=== PATIENT | female | born 1995 | race Caucasian/White ===

== ENCOUNTER 2017-02-21 19:25 | Emergency (ER) | payer OTHER, SELFPAY | END 2017-02-21 21:00 | disposition home or self-care (01) | PROVIDERS: Emergency Provider Nurse Practitioner; Visit Provider Nurse Practitioner | DX: J32.0 Chronic maxillary sinusitis (principal); J01.90 Acute sinusitis, unspecified; Z34.02 Encounter for supervision of normal first pregnancy, second trimester; Z88.0 Allergy status to penicillin | CPT/HCPCS: 99201 ==

== ENCOUNTER 2018-07-24 12:46 | Emergency (ER) | payer BC, SELFPAY ==
[2018-07-24 13:00] VITALS: BP 125/72; PULSE 82; RESP 18; TEMP 36.6; O2SAT 98; BMI 42.0
[2018-07-24 13:20] LABS: UTC Pregnancy Test, Urine Negative (Negative)
--- NOTE | 2018-07-24 13:20 | HMH.EDUTC ---
[facility] [place] Disposition Clinical Impression: Low back pain Qualifiers: Chronicity: unspecified Back pain laterality: midline Sciatica presence: with sciatica Sciatica laterality: sciatica of right side Qualified Code(s): M54.41 - Lumbago with sciatica, right side Disposition: Home, Self-Care Condition on Discharge: Good Instructions: Sciatica (Alternative Therapy), Sciatica, Low Back Pain, DI for Low Back Pain, DI for Sciatica, DI for Chronic Pain -- Adult, DI for Back Pain With Sciatica Additional Instructions: *Etodolac laurie 6 hours with meal as needed for pain/inflammation *Remember you had a Toradol shot in the clinic today, which is similar to Etodolac *Not additional anti-inflammatory like motrin, aleve, advil with the above amount of Etodolac. You can still take Tylenol every 4 hours as needed if you need something else for pain *moist heat every 20 minutes 3-4 times a day to affected area *Muscle relaxer every 8 hours as needed for muscle spasms but remember, it WILL cause drowsiness You cannot take it and drive, operate machinery or care for small children. *Keep this area active, no movement leads to more stiffness, However take it easy and avoid heavy lifting pushing or pulling *Follow up with you family doctor if no improvement for further treatment \Straight to ER if any loss of control of bowel or bladder or life threatening symptoms Warm bath soaks may help with low back pain Prescriptions: Etodolac [Etodolac 200mg Cap] 200 mg PO Q6HP PRN #15 cap PRN Reason: Moderate Pain Cyclobenzaprine HCl [Flexeril 10mg tablet] 10 mg PO TID PRN #15 tab PRN Reason: Muscle Spasm Referrals: Provider,Referral, [Primary Care Provider] - As needed Time of Disposition: 13:41 Medical Decision Making - Jone Inquiry Pt receiving controlled substance: No Jone was queried for this patient: No Vital Signs: 07/24/18 13:00 Temperature 97.8 F Temperature Source Oral Pulse Rate [Right Brachial] 82 Respiratory Rate 18 Blood Pressure [Right Arm] 125/72 Blood Pressure Mean [Right Arm] 89 Blood Pressure Source [Right Arm] Automatic Cuff Blood Pressure Position [Right Arm] Sitting 02 Sat by Pulse Oximetry 98 Oxygen Delivery Method Room Air - Lab Data Lab results reviewed: Yes: I reviewed the patient's lab results. Lab Results 07/24/18 13:16: Tst Clinic Negative Orders (Tests/Meds): ED MEDICATIONS Discontinued Medications Generic Name Dose Route Start Last Admin Trade Name Monalisa PRN Reason Stop Dose Admin Ketorolac Tromethamine 60 mg 07/24/18 13:22 07/24/18 13:27 Toradol 60mg/2ml Vial IM 07/24/18 13:23 60 mg ONCE ONE Administration Methylprednisolone Sodium Succinate 125 mg 07/24/18 13:22 07/24/18 13:27 Solu-Medrol 125mg/2ml Vial IM 07/24/18 13:23 125 mg ONCE ONE Administration [facility] [place] HPI - General Stated complaint: lower back pain Time Seen by Provider: 07/24/18 13:20 Mode of Arrival: Family Vehicle Source of Information: Patient Limitations: No Limitations Description of Symptoms (Recalled from Triage Doc. by RN): C/O MID LOW BACK PAIN SHARP IN NATURE WITH MOVEMENT SINCE LAST PM. UNKNOWN INJURY HEENT Symptoms (Recalled from RN notes): No Resp Symptoms (Recalled from RN notes): No Skin Symptoms (Recalled from RN notes): No MS Symptoms (Recalled from RN notes): Yes Functional Status (Recalled from RN notes): N/A - History of Present Illness Provider Complaint: Patient state that she has been walking more than usual State that she noticed yesterday that she was having some pain in the right side of her lower back area that was going into her right buttock area State that pain was sharp at times Denies known injury denies bowel or bladder problems or loss of control - Related Data Previous Rx's Medication Instructions Recorded Cyclobenzaprine HCl [Flexeril 10mg 10 mg PO TID PRN #15 tab 07/24/18 tablet] Etodolac [Etodolac 200mg Cap] 200 mg PO Q6HP PRN #15 cap
--- NOTE | 2018-07-24 13:24 | ED_ITS ---
[facility] [place] Impression: Low back pain Qualifiers: Chronicity: unspecified Back pain laterality: midline Sciatica presence: with sciatica Sciatica laterality: sciatica of right side Qualified Code(s): M54.41 - Lumbago with sciatica, right side Disposition: Home, Self-Care Condition on Discharge: Good Instructions: Sciatica (Alternative Therapy), Sciatica, Low Back Pain, DI for Low Back Pain, DI for Sciatica, DI for Chronic Pain -- Adult, DI for Back Pain With Sciatica Additional Instructions: *Etodolac laurie 6 hours with meal as needed for pain/inflammation *Remember you had a Toradol shot in the clinic today, which is similar to Etodolac *Not additional anti-inflammatory like motrin, aleve, advil with the above amount of Etodolac. You can still take Tylenol every 4 hours as needed if you need something else for pain *moist heat every 20 minutes 3-4 times a day to affected area *Muscle relaxer every 8 hours as needed for muscle spasms but remember, it WILL cause drowsiness You cannot take it and drive, operate machinery or care for small children. *Keep this area active, no movement leads to more stiffness, However take it easy and avoid heavy lifting pushing or pulling *Follow up with you family doctor if no improvement for further treatment \Straight to ER if any loss of control of bowel or bladder or life threatening symptoms Warm bath soaks may help with low back pain Prescriptions: Etodolac [Etodolac 200mg Cap] 200 mg PO Q6HP PRN #15 cap PRN Reason: Moderate Pain Cyclobenzaprine HCl [Flexeril 10mg tablet] 10 mg PO TID PRN #15 tab PRN Reason: Muscle Spasm Referrals: Provider,Referral, [Primary Care Provider] - As needed Time of Disposition: 13:41 Medical Decision Making - Jone Inquiry Pt receiving controlled substance: No Jone was queried for this patient: No Vital Signs: 07/24/18 13:00 Temperature 97.8 F Temperature Source Oral Pulse Rate [Right Brachial] 82 Respiratory Rate 18 Blood Pressure [Right Arm] 125/72 Blood Pressure Mean [Right Arm] 89 Blood Pressure Source [Right Arm] Automatic Cuff Blood Pressure Position [Right Arm] Sitting 02 Sat by Pulse Oximetry 98 Oxygen Delivery Method Room Air - Lab Data Lab results reviewed: Yes: I reviewed the patient's lab results. Lab Results 07/24/18 13:16: Tst Clinic Negative Orders (Tests/Meds): ED MEDICATIONS Discontinued Medications Generic Name Dose Route Start Last Admin Trade Name Monalisa PRN Reason Stop Dose Admin Ketorolac Tromethamine 60 mg 07/24/18 13:22 07/24/18 13:27 Toradol 60mg/2ml Vial IM 07/24/18 13:23 60 mg ONCE ONE Administration Methylprednisolone Sodium Succinate 125 mg 07/24/18 13:22 07/24/18 13:27 Solu-Medrol 125mg/2ml Vial IM 07/24/18 13:23 125 mg ONCE ONE Administration [facility] [place] General Stated complaint: lower back pain Time Seen by Provider: 07/24/18 13:20 Mode of Arrival: Family Vehicle Source of Information: Patient Limitations: No Limitations Description of Symptoms (Recalled from Triage Doc. by RN): C/O MID LOW BACK PAIN SHARP IN NATURE WITH MOVEMENT SINCE LAST PM. UNKNOWN INJURY HEENT Symptoms (Recalled from RN notes): No Resp Symptoms (Recalled from RN notes): No Skin Symptoms (Recalled from RN notes): N
[2018-07-24 13:43] VITALS: BP 125/72; PULSE 82; RESP 18; TEMP 36.6; O2SAT 98
== END 2018-07-24 13:45 | disposition home or self-care (01) ==
PROVIDERS: Emergency Provider Nurse Practitioner
DX: M54.41 Lumbago with sciatica, right side (principal); Z88.0 Allergy status to penicillin
CPT/HCPCS: 81025; 96372; 99202

== ENCOUNTER → 2018-09-14 16:28 | Outpatient (CLI) | payer BC, SELFPAY ==
[2018-09-14 17:04] LABS: Basophils % 0.7 % (0.1-2.0); Eosinophils # 0.1 K/mm3 (0.0-0.4); Eosinophils % 1.6 % (0.1-12.0); Hematocrit 33.5 % (37.0-47.0); Hemoglobin 10.6 g/dL (12.2-16.2); Lymphocytes # 1.9 K/mm3 (0.7-4.5); Lymphocytes % 32.4 % (10-50); Mean Corpuscular HGB Conc 31.6 g/dL (31.8-35.4); Mean Corpuscular Hemoglobin 21.9 pg (27.0-31.2); Mean Corpuscular Volume 69.4 fl (81-99); Mean Platelet Volume 7.1 fl (7.4-10.4); Monocytes # 0.2 K/mm3 (0.1-1.0); Monocytes % 3.8 % (1.7-9.3); Neutrophils # 3.7 K/mm3 (1.8-7.8); Neutrophils % 61.5 % (37.0-80.0); Platelet Count 293 K/mm3 (142-424); Red Blood Count 4.82 M/mm3 (4.20-5.40); Red Cell Distribution Width 15.9 % (11.5-17.5)
[2018-09-14 17:50] LABS: Alanine Aminotransferase 23 U/L (12-78); Albumin Level 3.6 gm/dL (3.4-5.0); Albumin/Globulin Ratio 1.3 (1.1-1.8); Alkaline Phosphatase 98 U/L (46-116); Anion Gap 11.3 mEq/L (5-15); Aspartate Amino Transferase 10 U/L (15-37); Bilirubin,Total 0.2 mg/dL (0.2-1.0); Blood Urea Nitrogen 15 mg/dL (7-18); Calcium 8.6 mg/dL (8.5-10.1); Carbon Dioxide 27 mmol/L (21.0-32.0); Chloride 105 mmol/L (98-107); Creatinine,Serum 0.64 mg/dL (0.55-1.02); Estimated Glomerular Filt Rate 115 ml/min (>60); Free T4 (Free Thyroxine) 1.02 ng/dl (0.76-1.46); GFR (African American) 139 ML/MIN (>60); Globulin 2.7 gm/dl (1.3-3.2); Glucose 97 mg/dL (74-106); Potassium 4.3 mmoL/L (3.5-5.1); Sodium 139 mmol/L (136-145); Thyroid Stimulating Hormone 1.27 uIU/ml (0.358-3.740); Total Protein,Serum 6.3 gm/dL (6.4-8.2)
[2018-09-16 17:50] LABS: Vitamin B12 430 pg/mL (232-1245)
== END ==
PROVIDERS: Visit Provider Nurse Practitioner Family
DX: R53.81 Other malaise (principal); F41.8 Other specified anxiety disorders
CPT/HCPCS: 36415; 80053; 82607; 84439; 84443; 85025

== ENCOUNTER → 2018-11-10 10:59 | Outpatient (CLI) | payer BC, SELFPAY ==
[2018-11-10 11:20] LABS: Basophils % 0.3 % (0.1-2.0); Eosinophils # 0.1 K/mm3 (0.0-0.4); Eosinophils % 1.2 % (0.1-12.0); Hematocrit 33.5 % (37.0-47.0); Hemoglobin 10.7 g/dL (12.2-16.2); Lymphocytes # 1.7 K/mm3 (0.7-4.5); Lymphocytes % 20.5 % (10-50); Mean Corpuscular HGB Conc 31.9 g/dL (31.8-35.4); Mean Corpuscular Hemoglobin 23.3 pg (27.0-31.2); Mean Corpuscular Volume 73.1 fl (81-99); Monocytes # 0.4 K/mm3 (0.1-1.0); Monocytes % 5.3 % (1.7-9.3); Neutrophils # 5.9 K/mm3 (1.8-7.8); Neutrophils % 72.7 % (37.0-80.0); Platelet Count 245 K/mm3 (142-424); Red Blood Count 4.59 M/mm3 (4.20-5.40); Red Cell Distribution Width 16.5 % (11.5-17.5); White Blood Count 8.1 K/mm3 (4.8-10.8)
[2018-11-10 11:45] LABS: HCG Qualitative, Serum Negative (Negative)
[2018-11-10 11:59] LABS: Alanine Aminotransferase 21 U/L (12-78); Albumin Level 3.7 gm/dL (3.4-5.0); Albumin/Globulin Ratio 1.3 (1.1-1.8); Alkaline Phosphatase 86 U/L (46-116); Anion Gap 14.8 mEq/L (5-15); Aspartate Amino Transferase 13 U/L (15-37); Bilirubin,Total 0.2 mg/dL (0.2-1.0); Blood Urea Nitrogen 12 mg/dL (7-18); Calcium 8.7 mg/dL (8.5-10.1); Carbon Dioxide 27 mmol/L (21.0-32.0); Chloride 103 mmol/L (98-107); Creatinine,Serum 0.93 mg/dL (0.55-1.02); Estimated Glomerular Filt Rate 75 ml/min (>60); GFR (African American) 90 ML/MIN (>60); Globulin 2.8 gm/dl (1.3-3.2); Glucose 95 mg/dL (74-106); Potassium 3.8 mmoL/L (3.5-5.1); Sodium 141 mmol/L (136-145); Total Protein,Serum 6.5 gm/dL (6.4-8.2)
[2018-11-12 14:49] LABS: Ferritin 14 ng/mL (8-388); Iron 28 ug/dl (28-170)
[2018-11-13 10:10] LABS: Folate >20.0 ng/mL (>3.0)
== END ==
PROVIDERS: Visit Provider Nurse Practitioner Family
DX: R10.30 Lower abdominal pain, unspecified (principal); R11.0 Nausea; D64.9 Anemia, unspecified
CPT/HCPCS: 36415; 80053; 82728; 82746; 83540; 84703; 85025

== ENCOUNTER → 2019-03-06 15:15 | Outpatient (CLI) | payer BC, SELFPAY ==
--- NOTE | 2019-03-06 15:21 | US_ITS ---
PROCEDURE: US OB TRANSVAGINAL CLINICAL INDICATION: US OB T/V- Viability and Dates Follow-up subchorionic bleed COMPARISON: US OB <= 14 WEEKS FETUS from 02/24/2019 FINDINGS: An intrauterine gestational sac is present with a pole with a crown-rump length of 1.61cm correlating to gestational age of 8weeks 1day. heart tones are present with an FHR of 170bpm. Yolk sac is noted. There remains an area of decreased echogenicity in the subchorionic region consistent with a residual subchorionic hemorrhage measuring 2.3 x 0.6 cm previously 2 point by 0.7 cm. No adnexal mass or cul-de-sac fluid. IMPRESSION: Live IUP at 8 weeks 1 day. Persistent hypo echogenicity along the anterior aspect the uterus consistent with small subchorionic hemorrhage overall not significantly changed Estimated due date by Ultrasound is 10/15/2019 Dictated by: Que Rajan MD 03/06/2019 16:15 Electronically signed by Que Rajan MD in [place] 03/06/2019 16:15
== END ==
PROVIDERS: PCP Nurse Practitioner Family; Visit Provider Obstetrics & Gynecology
DX: O26.841 Uterine size-date discrepancy, first trimester (principal); Z34.90 Encounter for supervision of normal pregnancy, unspecified, unspecified trimester
CPT/HCPCS: 76817

== ENCOUNTER 2019-12-23 19:32 | Emergency (ER) | payer BC, SELFPAY ==
[2019-12-23 20:11] VITALS: BP 119/72; PULSE 87; RESP 16; TEMP 37; O2SAT 100; BMI 38.6
[2019-12-23 20:28] LABS: Adenovirus,PCR Not Detected (NotDetected); Bordetella Pertussis Not Detected (NotDetected); Chlamydophila Pneumoniae, PCR Not Detected (NotDetected); Coronavirus 19, PCR Not Detected (NotDetected); Coronavirus 229E Not Detected (NotDetected); Coronavirus NL63 Not Detected (NotDetected); Coronavirus OC43 Not Detected (NotDetected); Coronovirus HKU1,PCR Not Detected (NotDetected); Human Metapneumovirus Not Detected (NotDetected); Influenza A, PCR Not Detected (NotDetected); Influenza AH1, 2009 Not Detected (NotDetected); Influenza AH1, PCR Not Detected (NotDetected); Influenza AH3,PCR Not Detected (NotDetected); Influenza B, PCR Not Detected (NotDetected); Mycoplasma Pneumoniae, PCR Not Detected (NotDetected); Parainfluenza 1, PCR Not Detected (NotDetected); Parainfluenza 2, PCR Not Detected (NotDetected); Parainfluenza 3, PCR Not Detected (NotDetected); Parainfluenza 4, PCR Not Detected (NotDetected); Respiratory Syncytial Virus Not Detected (NotDetected); Rhinovirus/Enterovirus Not Detected (NotDetected)
--- NOTE | 2019-12-23 21:01 | HMH.EDUTC ---
[facility] [place] Disposition Clinical Impression: Exposure to COVID-19 virus URI (upper respiratory infection) Qualifiers: URI type: unspecified URI Qualified Code(s): J06.9 - Acute upper respiratory infection, unspecified Disposition: Home, Self-Care Condition on Discharge: Good Instructions: Sore Throat, Cough, DI for Cough -- Adult, DI for Fever (Symptom) -- Adult, Preventing the Spread of Coronavirus Discharge Instructions Additional Instructions: *Monitor Temp, Over the counter Motrin or Tylenol as directed/as needed Tylenol every 4 hours and Motrin every 6 hours (as long as your family doctor has told you that you can take it) for fever or pain. and straight to ER if unable to lower temp less than 101.0 after medication given *Warm salt water gargles may help to soothe the throat *Throat Lozenges *Warm fluids like tea with honey may help to soothe the throat *Sleep elevated *Humidifier/Vaporizer *Flonase 2 sprays in each nostril daily but be aware that it may take 2-3 days before you notice improvement Follow up IMMEDIATELY for new or worsening symptoms or no Noticeable improvement over the next 48-72 hours. 911 for difficulty breathing or swallowing You was tested for today for COVID19 your test result should be back later this evening, you may call back later this evening to see if your test results are back and the result You was given a handout with instructions for Self Quarantine and Self isolation for while you wait on test results and what to do if they are positive Referrals: Candace Jhaveri APRN [Primary Care Provider] - As needed Time of Disposition: 21:02 Medical Decision Making - Jone Inquiry Pt receiving controlled substance: No Jone was queried for this patient: No Vital Signs: 12/23/19 20:11 Temperature 98.6 F Temperature Source Oral Pulse Rate [Right Brachial] 87 Respiratory Rate 16 Blood Pressure [Right Arm] 119/72 Blood Pressure Mean [Right Arm] 87 Blood Pressure Source [Right Arm] Automatic Cuff Blood Pressure Position [Right Arm] Sitting 02 Sat by Pulse Oximetry 100 Oxygen Delivery Method Room Air Orders (Tests/Meds): ORDERS Category Date Time Status Full Resp Panel w/COVID ([facility]) Routine Lab 12/23/19 20:00 Received [facility] UTC HPI - General Stated complaint: Headache, sore throat, congestion Time Seen by Provider: 12/23/19 21:01 Mode of Arrival: Ambulatory Source of Information: Patient Limitations: No Limitations Description of Symptoms (Recalled from Triage Doc. by RN): PATIENT C/O HEADACHE, CONGESTION, AND SORE THROAT; FATHER RECENTLY TESTED POSITIVE FOR COVID HEENT Symptoms (Recalled from RN notes): Yes Resp Symptoms (Recalled from RN notes): No Skin Symptoms (Recalled from RN notes): No MS Symptoms (Recalled from RN notes): No Functional Status (Recalled from RN notes): WNL - History of Present Illness Provider Complaint: Patient states that her father recently tested positive for COVID States that she was around him before they found out he was positive and now she is having sore and scratchy throat, nasal congestion cough and headache similar symptoms to what he was having and wanted to come in and get tested - Related Data Home Medications Medication Instructions Recorded Confirmed Norethindrone [Sofie] 0.35 mg PO DAILY 12/23/19 12/23/19 Allergies Allergy/AdvReac Type Severity Reaction Status Date / Time penicillin G [PENICILLIN G] Allergy Mild Verified 03/01/19 09:08 - Worker's Comp Is this a Worker's Comp case?: No [facility] History - Hepatitis A Screen Drug use history?: No High risk sexual behaviors?: No History of sexually transmitted infection?: No Currently employed?: No Childcare worker?: No Do you have indoor plumbing?: Yes Do you have electricity?: Yes Attestation statement:: This patient has been screened for Hepatitis A risk factors. I have reviewed the patient's past medical history: Yes 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: Reports:: Depression
[2019-12-23 21:07] VITALS: BP 119/72; PULSE 87; RESP 16; TEMP 37; O2SAT 100
== END 2019-12-23 21:12 | disposition home or self-care (01) ==
PROVIDERS: Emergency Provider Nurse Practitioner; PCP Nurse Practitioner Family
DX: Z20.828 Contact with and (suspected) exposure to other viral communicable diseases (principal); J06.9 Acute upper respiratory infection, unspecified; R09.81 Nasal congestion
CPT/HCPCS: 87581; 87633; 87798; 99201; U0003

== ENCOUNTER → 2020-08-27 13:11 | Outpatient (CLI) | payer BC, SELFPAY ==
[2020-08-27 13:37] LABS: Basophils % 0.6 % (0.1-2.0); Eosinophils # 0.2 K/mm3 (0.0-0.4); Eosinophils % 3.4 % (0.1-12.0); Hemoglobin 12.7 g/dL (12.2-16.2); Lymphocytes # 1.8 K/mm3 (0.7-4.5); Lymphocytes % 28.9 % (10-50); Mean Corpuscular HGB Conc 32.7 g/dL (31.8-35.4); Mean Corpuscular Hemoglobin 25.3 pg (27.0-31.2); Mean Corpuscular Volume 77.5 fl (81-99); Mean Platelet Volume 6.9 fl (7.4-10.4); Monocytes # 0.2 K/mm3 (0.1-1.0); Monocytes % 3.3 % (1.7-9.3); Neutrophils % 63.8 % (37.0-80.0); Platelet Count 261 K/mm3 (142-424); Red Blood Count 5.03 M/mm3 (4.20-5.40); Red Cell Distribution Width 14.2 % (11.5-17.5); White Blood Count 6.2 K/mm3 (4.8-10.8)
[2020-08-27 15:09] LABS: Alanine Aminotransferase 21 U/L (12-78); Albumin Level 3.8 g/dl (3.5-5.0); Albumin/Globulin Ratio 1.4 (1.1-1.8); Alkaline Phosphatase 89 U/L (38-126); Anion Gap 13.3 mEq/L (5-15); Aspartate Amino Transferase 25 U/L (14-36); Bilirubin,Total 0.4 mg/dl (0.2-1.3); Blood Urea Nitrogen 13 mg/dl (7-17); Carbon Dioxide 24 mmol/L (22.0-30.0); Chloride 105 mmol/L (98-107); Estimated Glomerular Filt Rate 122 ml/min (>60); GFR (African American) 147 ML/MIN (>60); Globulin 2.7 g/dL (1.3-3.2); Glucose 88 mg/dl (74-100); Potassium 4.3 mmoL/L (3.5-5.1); Sodium 138 mmol/L (136-145); Total Protein,Serum 6.5 g/dl (6.3-8.2)
[2020-08-27 15:40] LABS: Thyroid Stimulating Hormone 1.56 uIU/mL (0.465-4.68)
[2020-08-27 15:58] LABS: Vitamin B12 391 pg/mL (239-931)
== END ==
PROVIDERS: Visit Provider Nurse Practitioner Family
DX: F41.8 Other specified anxiety disorders (principal); Z86.2 Personal history of diseases of the blood and blood-forming organs and certain disorders involving the immune mechanism
CPT/HCPCS: 36415; 80053; 82607; 84443; 85025

== ENCOUNTER 2020-11-06 14:43 | Emergency (ER) | payer BC, SELFPAY ==
[2020-11-06 15:39] VITALS: BP 0/0; PULSE 0; RESP 0; TEMP -17.7; TEMP 0
== END 2020-11-06 15:39 | disposition left against medical advice (07) ==
LOC: UTC 14:48
PROVIDERS: Emergency Provider Nurse Practitioner Family; PCP Nurse Practitioner Family
DX: Z53.21 Procedure and treatment not carried out due to patient leaving prior to being seen by health care provider (principal)

== ENCOUNTER 2021-02-03 11:05 | Emergency (ER) | payer BC, SELFPAY ==
[2021-02-03 11:37] VITALS: BP 122/84; PULSE 92; RESP 18; TEMP 36.8; O2SAT 97; BMI 43.2
[2021-02-03 12:01] LABS: UTC Strep Screen (Rapid) Negative (Negative)
--- NOTE | 2021-02-03 12:01 | HMH.EDUTC ---
[facility] [place] Disposition Clinical Impression: Lung infiltrate Disposition: Home, Self-Care Condition on Discharge: Good Instructions: Pneumonia-Adult, Azithromycin Additional Instructions: ? Start antibiotic today. Be sure to complete entire prescription even if feeling better ? Monitor temp. Tylenol every 4 hours as needed and / or ibuprofen every 6 hours as needed ( As long as your primary care physician has told you that it ok to take both. For fever/aches/pains ER if no less than 101 despite Tylenol or Motrin ? Humidifier/vaporizer or hot steamy shower ? Inhaler every 4-6 hours as needed like we discussed. If unsure how to use it, ask pharmacist to demonstrate how. Should help open airways and improve cough, wheezing, and shortness of breath ? Mucinex for your cough and chest congestion. Be sure to drink lots of water. *Start steroid today. Helps with inflammation therefore, cough and wheezing. Follow directions on the package. Reviewed side effects. Patient reports taking them before. Follow up IMMEDIATELY for new or worsening of symptoms OR no noticeable improvement over the next 48-72 hours. 911 immediately for any life threatening symptoms such as chest pain or difficulty breathing Prescriptions: guaiFENesin [Mucinex 600mg tablet] 1 - 2 tab PO Q12HP PRN #20 tab PRN Reason: Congestion Transmission Status: Pending to [facility] predniSONE [Prednisone 20mg Tab] 20 mg PO BID 5 Days #10 tab Transmission Status: Pending to [facility] Azithromycin [Z-Cristian 250mg Tab] 250 mg PO DIRECTED #6 tab Transmission Status: Pending to [facility] Referrals: Provider,Referral, MD [Primary Care Provider] - As needed Forms: Work/School Release Time of Disposition: 12:55 Medical Decision Making - Jone Inquiry Pt receiving controlled substance: No Jone was queried for this patient: No Vital Signs: 02/03/21 11:37 Temperature 98.2 F Temperature Source Oral Pulse Rate [Left] 92 H Respiratory Rate 18 Blood Pressure [Right Arm] 122/84 Blood Pressure Mean [Right Arm] 96 02 Sat by Pulse Oximetry 97 - Lab Data Lab Results 02/03/21 11:39: Strep Scn Rapid Clinic Negative Orders (Tests/Meds): ORDERS Category Date Time Status Covid-19 Nasal PCR ([facility]) Routine Lab 12/08/21 11:36 Received Strep Screen Confirmation Routine Micro 02/03/21 11:39 Received - Radiology Data #1 Image(s): Chest Image Reviewed: Yes I have reviewed radiologist's interpretation Possible early infiltrate in the left upper lobe versus summation artifact. [facility] [place] HPI - General Stated complaint: cough,SOA,lung pain Time Seen by Provider: 02/03/21 12:01 Mode of Arrival: Ambulatory Source of Information: Patient Limitations: No Limitations Description of Symptoms (Recalled from Triage Doc. by RN): pt c/o a cough, soa, and pain in lungs with coughing. x3 days HEENT Symptoms (Recalled from RN notes): No Resp Symptoms (Recalled from RN notes): Yes (cough and soa) Skin Symptoms (Recalled from RN notes): No MS Symptoms (Recalled from RN notes): No Functional Status (Recalled from RN notes): wnl - History of Present Illness Provider Complaint: Patient states that she has been having cough, chest congestion and feeling SOA at times on and off States that also she has been having pain in her lungs at times when she coughs or takes a deep breath and coughing up mucous on and off States that she has been having raw burning feeling in her throat and over all not feeling well so she came in today to get checked out - Related Data Home Medications Medication Instructions Recorded Confirmed Norethindrone [Sofie] 0.35 mg PO DAILY 12/23/19 12/23/19 Previous Rx's Medication Instructions Recorded Azithromycin [Z-Cristian 250mg Tab] 250 mg PO DIRECTED #6 tab 02/03/21 guaiFENesin [Mucinex 600mg tablet] 1 - 2 tab PO Q12HP PRN #20 tab 02/03/21 predniSONE [Prednisone 20mg 20 mg PO BID
--- NOTE | 2021-02-03 12:05 | XR_ITS ---
PROCEDURE: XR CHEST 2V CLINICAL HISTORY: pain in lungs with cough COMPARISON: CR CXR CHEST(2 VIEWS-NOT PORTABLE) from 08/08/2014 FINDINGS: The cardiomediastinal silhouette and pulmonary vascularity are within normal limits. Faint area of increased density in the left upper lobe which may be due to summation densities versus early area of infiltrate. The right lung is clear. No acute bony abnormalities. IMPRESSION: Possible early infiltrate in the left upper lobe versus summation artifact. Dictated by: Que Rajan MD 02/03/2021 12:43 Que Rajan MD in [place] 02/03/2021 12:43
[2021-02-03 12:55] VITALS: BP 122/84; PULSE 92; RESP 18; TEMP 36.8
== END 2021-02-03 13:00 | disposition home or self-care (01) ==
PROVIDERS: Emergency Provider Nurse Practitioner
DX: R91.8 Other nonspecific abnormal finding of lung field (principal); F33.1 Major depressive disorder, recurrent, moderate; R07.9 Chest pain, unspecified; Z88.0 Allergy status to penicillin
CPT/HCPCS: 71046; 87880; 99203; C9803; G0463; U0003; U0005

== ENCOUNTER 2021-03-18 21:54 | Emergency (ER) | payer BC, SELFPAY ==
[2021-03-18 21:55] VITALS: BP 133/78; PULSE 87; RESP 14; TEMP 36.8; O2SAT 98; BMI 43.7
--- NOTE | 2021-03-18 22:48 | HMH.EDEAR ---
ED Disposition Clinical Impression: Acute serous otitis media Qualifiers: Laterality: left Recurrence: not specified as recurrent Qualified Code(s): H65.02 - Acute serous otitis media, left ear Disposition: Home, Self-Care Condition on Discharge: Good Instructions: DI for Ear Pain-Adult Additional Instructions: use meds and call pcp for follow up Prescriptions: levoFLOXacin [Levaquin 500mg tab] 500 mg PO DAILY #7 tab Transmission Status: Pending to [facility] predniSONE [Prednisone 20mg Tab] 20 mg PO BID #10 tab Transmission Status: Pending to [facility] Referrals: Candace Jhaveri APRN [Primary Care Provider] - - Critical Care Critical Care Time: No Attestation: On 03/18/21, the high probability of a clinically significant, sudden or life threatening deterioration of the following system(s) required my full and direct attention, intervention and personal management. The time I documented below is in addition to time spent performing reported procedures but includes the following listed in this critical care notation. Medical Decision Making - Medical Records Medical records reviewed: Yes: I reviewed the patient's medical records. - Jone Inquiry Pt receiving controlled substance: No Vital Signs: 03/18/21 21:55 Temperature 98.3 F Temperature Source Oral Pulse Rate [Right Radial] 87 Respiratory Rate 14 Blood Pressure [Right Arm] 133/78 Blood Pressure Mean [Right Arm] 96 Blood Pressure Source [Right Arm] Automatic Cuff Blood Pressure Position [Right Arm] Sitting 02 Sat by Pulse Oximetry 98 Oxygen Delivery Method Room Air - Lab Data Lab results reviewed: Yes: I reviewed the patient's lab results. Medical Decision Narrative: pt with ear pain with effusion will treat at this time Ear HPI - General Chief complaint: Ear Stated complaint: L ear pain, dizzy Time Seen by Provider: 03/18/21 22:48 Mode of Arrival: Ambulatory Source of Information: Patient, Medical Record Limitations: No Limitations Description of Symptoms (Recalled from ER Triage Doc. by RN): Pt reports left ear pain that started Monday after she yawned and heard a pop. She says she has experianced some dizziness and nausea today as well. Denies vomiting. Denies fevers. Denies drainage from ear. - History of Present Illness HPI Narrative: pt reports lt ear pain over the last week w/o fever or cough - today had assoc dizzyness - denied - MD Complaint: ear pain Location: left ear Duration: intermittent Severity: moderate Discharge from ear: no Treatment prior to arrival: none - Related Data Home Medications Medication Instructions Recorded Confirmed Norethindrone [Sofie] 0.35 mg PO DAILY 12/23/19 12/23/19 Previous Rx's Medication Instructions Recorded Azithromycin [Z-Cristian 250mg Tab] 250 mg PO DIRECTED #6 tab 02/03/21 guaiFENesin [Mucinex 600mg tablet] 1 - 2 tab PO Q12HP PRN #20 tab 02/03/21 predniSONE [Prednisone 20mg 20 mg PO BID 5 Days #10 tab 02/03/21 Tab] levoFLOXacin [Levaquin 500mg 500 mg PO DAILY #7 tab 03/18/21 tab] predniSONE [Prednisone 20mg 20 mg PO BID #10 tab 03/18/21 Tab] Allergies Allergy/AdvReac Type Severity Reaction Status Date / Time penicillin G [PENICILLIN G] Allergy Mild Verified 03/01/19 09:08 [facility] History - Hepatitis A Screen Drug use history?: No High risk sexual behaviors?: No History of sexually transmitted infection?: No Currently employed?: No Childcare worker?: No Do you have indoor plumbing?: Yes Do you have electricity?: Yes Attestation statement:: This patient has been screened for Hepatitis A risk factors. I have reviewed the patient's past medical history: Yes 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: Reports:: Depression Denies:: Cancer, Diabetes Mellitus Type 1, Diabetes Mellitus Type 2, MRSA Laterality Cases: Right: Arthroscopy Knee, Bilateral: Tonsillectomy Other Surgeries: Yes: Other Am
[2021-03-18 23:10] VITALS: BP 117/74; PULSE 93; RESP 20; TEMP 37.3; O2SAT 97
== END 2021-03-18 23:11 | disposition home or self-care (01) ==
PROVIDERS: Emergency Provider Emergency Medicine; PCP Nurse Practitioner Family
DX: H65.02 Acute serous otitis media, left ear (principal); F33.1 Major depressive disorder, recurrent, moderate
CPT/HCPCS: 99281

== ENCOUNTER 2021-04-24 14:22 | Emergency (ER) | payer BC, SELFPAY ==
--- NOTE | 2021-04-24 15:32 | HMH.EDUTC ---
[facility] [place] Disposition Clinical Impression: Otitis media Qualifiers: Otitis media type: suppurative Chronicity: acute Laterality: bilateral Recurrence: non-recurrent Spontaneous tympanic membrane rupture: without spontaneous rupture Qualified Code(s): H66.003 - Acute suppurative otitis media without spontaneous rupture of ear drum, bilateral Disposition: Home, Self-Care Condition on Discharge: Good Instructions: Middle Ear Infection Additional Instructions: Drink plenty of fluids. Take tylenol or ibuprofen for pain or fever. Take the medications as directed. Follow up with your regular doctor. GO TO THE ER FOR ANY WORSENING SYMPTOMS Prescriptions: Brompheniramine/Pseudoephed/Dm [Bromfed Dm Cough Syrup] 5 ml PO Q6HP PRN #240 ml PRN Reason: Cough Transmission Status: Received by [facility] methylPREDNISolone [Medrol] 4 mg PO DIRECTED 6 Days #21 packet Transmission Status: Received by [facility] Cefdinir [Omnicef 300mg Capsule] 300 mg PO BID #20 cap Transmission Status: Received by [facility] Referrals: Candace Jhaveri APRN [Primary Care Provider] - Forms: Work/School Release Time of Disposition: 16:39 Medical Decision Making - Medical Records Medical records reviewed: No: I reviewed the patient's medical records. - Jone Inquiry Pt receiving controlled substance: No Vital Signs: 04/24/21 15:34 04/24/21 16:56 Temperature 98.9 F 98.9 F Temperature Source Oral Pulse Rate 78 Pulse Rate [Left] 78 Respiratory Rate 16 16 Blood Pressure 121/75 Blood Pressure [Right Arm] 121/75 Blood Pressure Mean [Right Arm] 90 02 Sat by Pulse Oximetry 98 - Lab Data Lab Results 04/24/21 15:31: Strep Scn Rapid Clinic Negative [facility] [place] HPI - General Stated complaint: dizziness Time Seen by Provider: 04/24/21 15:32 - History of Present Illness Provider Complaint: She states that since yesterday she has had bilateral ear pain and pressure. She has also has had some dizziness when she moves her head fast. - Related Data Home Medications Medication Instructions Recorded Confirmed Norethindrone [Sofie] 0.35 mg PO DAILY 12/23/19 12/23/19 Previous Rx's Medication Instructions Recorded Azithromycin [Z-Cristian 250mg Tab] 250 mg PO DIRECTED #6 tab 02/03/21 guaiFENesin [Mucinex 600mg tablet] 1 - 2 tab PO Q12HP PRN #20 tab 02/03/21 predniSONE [Prednisone 20mg 20 mg PO BID 5 Days #10 tab 02/03/21 Tab] levoFLOXacin [Levaquin 500mg 500 mg PO DAILY #7 tab 03/18/21 tab] predniSONE [Prednisone 20mg 20 mg PO BID #10 tab 03/18/21 Tab] Brompheniramine/Pseudoephed/Dm 5 ml PO Q6HP PRN #240 ml 04/24/21 [Bromfed Dm Cough Syrup] Cefdinir [Omnicef 300mg Capsule] 300 mg PO BID #20 cap 04/24/21 methylPREDNISolone [Medrol] 4 mg PO DIRECTED 6 Days #21 04/24/21 packet Allergies Allergy/AdvReac Type Severity Reaction Status Date / Time penicillin G [PENICILLIN G] Allergy Mild Verified 03/01/19 09:08 [facility] History - Hepatitis A Screen Attestation statement:: This patient has been screened for Hepatitis A risk factors. I have reviewed the patient's past medical history: Yes 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: Reports:: Depression Denies:: Cancer, Diabetes Mellitus Type 1, Diabetes Mellitus Type 2, MRSA Laterality Cases: Right: Arthroscopy Knee, Bilateral: Tonsillectomy Other Surgeries: Yes: Other Amputation: No Fractures: No Comment: [place] teeth removal - Social History Smoking Status: Never smoker Alcohol Intake: never Substance Use Type: denies use Occupational Status: other Housing: house Household Members: significant other, children - Psychiatric History Pschychiatric History:: Reports:: Depression Family Hx:: Thyroid Disorder, Cancer ROS Obtained: Yes All systems reviewed & no additional complaints - Constitutional Constitutional: Denies chills, Denies fever(s) - Eyes Eyes: Denies eye disch
[2021-04-24 15:34] VITALS: BP 121/75; PULSE 78; RESP 16; TEMP 37.2; O2SAT 98; BMI 42.9
[2021-04-24 15:55] LABS: UTC Strep Screen (Rapid) Negative (Negative)
[2021-04-24 16:56] VITALS: BP 121/75; PULSE 78; RESP 16; TEMP 37.2
== END 2021-04-24 16:57 | disposition home or self-care (01) ==
PROVIDERS: Emergency Provider Nurse Practitioner Family; PCP Nurse Practitioner Family
DX: H66.003 Acute suppurative otitis media without spontaneous rupture of ear drum, bilateral (principal); Z88.0 Allergy status to penicillin
CPT/HCPCS: 87880; 99202; G0463

== ENCOUNTER 2021-10-11 18:32 | Emergency (ER) | payer BC, SELFPAY ==
[2021-10-11 20:10] VITALS: BP 144/85; PULSE 113; RESP 20; TEMP 37.3; O2SAT 99; BMI 42.9
[2021-10-11 20:13] LABS: UTC Influenza A Antigen Positive (Negative); UTC Influenza B Antigen Negative (Negative)
[2021-10-11 20:16] LABS: UTC Strep Screen (Rapid) Positive (Negative)
--- NOTE | 2021-10-11 20:29 | HMH.EDUTC ---
[facility] [place]ression: Influenza A, Strep throat Disposition: Home, Self-Care Condition on Discharge: Good Instructions: Strep Throat, DI for Strep Throat Additional Instructions: ? Start Tamiflu today if you are going to take it. Discussed risk and possible benefits. ? Lots of rest ? Increase Fluids water, Gatorade, powerade, pedialyte,if /toddler/child ? Alternate Tylenol and / or ibuprofen as discussed for fever, aches, chills Follow up IMMEDIATELY with your family doctor for new or worsening Symptoms OR no noticeable improvement over the next 48-72 hours, 911 for difficulty or breathing ? You or your child area contagious until no fever, aches, chills for 24 hours with medication for symptoms ? Help Prevent the spread of influenza: ? Wash your hands often. Use soap and water. Wash your hands after you use the bathroom, change a child's diapers, or sneeze. Wash your hands before you prepare or eat food. Use gel hand cleanser that has 60% alcohol, when soap and water are not available. Do not touch your eyes, nose, or mouth unless you have washed your hands first. ? Cover your mouth when you sneeze or cough. Cough into a tissue or the bend of your arm. If you use a tissue, throw it away immediately and wash your hands. ? Clean shared items with a germ-killing home restoration service cleaner. Clean table surfaces, doorknobs, and light switches. Do not share towels, silverware, and dishes with people who are sick. Wash bed sheets, towels, silverware, and dishes with soap and water. ? Wear a mask over your mouth and nose if you are sick. The face mask may help protect others from becoming infected with the flu. Wear the mask when in common areas of your home or if you seek care with a healthcare provider. ? Stay away from others if you are sick. Stay at home until 24 hours after your fever and symptoms are gone. *If you did not take Penicillin shot or was unable to, start taking antibiotic immediately and make sure that you take it for the FULL length of time although you should start to feel better in 24-48 hours *change toothbrush and toothpaste 24-48 hours after starting to take antibiotics so you do not reinfect yourself Monitor Temp. Tylenol and/or Ibuprofen as needed. ER if fever is no less than 101 despite alternating Tylenol and Ibuprofen * Encourage fluids, water, Gatorade, powerade, pedialyte if /toddler/or child *Cold fluids, popsicles and ice cream may feel good on his throat Prescriptions: Oseltamivir Phosphate [Tamiflu 75mg Capsule] 75 mg PO BID #10 cap Transmission Status: Received by [facility] Azithromycin [Z-Cristian 250mg Tab] 250 mg PO DIRECTED #6 tab Transmission Status: Received by [facility] Referrals: Candace Jhaveri APRN [Primary Care Provider] - As needed Forms: Work/School Release Medical Decision Making - Jone Inquiry Pt receiving controlled substance: No Jone was queried for this patient: No Vital Signs: 10/11/21 20:10 Temperature 99.2 F Temperature Source Temporal Artery Scan Pulse Rate [Right Brachial] 113 H Respiratory Rate 20 Blood Pressure [Right Arm] 144/85 H Blood Pressure Mean [Right Arm] 104 Blood Pressure Source [Right Arm] Automatic Cuff Blood Pressure Position [Right Arm] Sitting 02 Sat by Pulse Oximetry 99 Oxygen Delivery Method Room Air - Lab Data Lab results reviewed: Yes: I reviewed the patient's lab results. Lab Results 10/11/21 20:10: Influenza Type A Ag Positive A, Influenza Type B Ag Negative 10/11/21 20:10: Strep Scn Rapid Clinic Positive A Medical Decision Narrative: Patient states that she has taken azithromycin in the past without complications or reactions [facility] [place] - General Stated complaint: VOMITING, ARIZA, COVID TEST Time Seen by Provider: 10/11/21 20:20 Mode of Arrival: Ambulatory Source of Information: Patient Limitations: No Limitations Description of Symptoms (Recalled from Triage Doc. by RN): Janneth
[2021-10-11 20:41] VITALS: BP 144/85; PULSE 113; RESP 20; TEMP 37.3; O2SAT 99
== END 2021-10-11 20:43 | disposition home or self-care (01) ==
PROVIDERS: Emergency Provider Nurse Practitioner; PCP Nurse Practitioner Family
DX: J02.0 Streptococcal pharyngitis (principal); J10.1 Influenza due to other identified influenza virus with other respiratory manifestations; Z20.822 Contact with and (suspected) exposure to COVID-19
CPT/HCPCS: 87804; 87880; 99212; G0463

== ENCOUNTER 2022-01-02 18:35 | Emergency (ER) | payer BC, SELFPAY ==
--- NOTE | 2022-01-02 19:46 | EXP.UTC ---
Discharge Plan Disposition Patient Disposition: Home, Self-Care Condition: Good Prescriptions Prescriptions: New rzkizgaznhnhihu-gyxihccyn-GG [Bromfed DM] 2-30-10 mg/5 mL Syrup 5 ml PO Q6H PRN (Reason: Cough) Qty: 240 0RF ondansetron 4 mg Tablet,Disintegrating 4 mg PO Q8H PRN (Reason: Nausea) Qty: 12 0RF No Action azithromycin 250 MG tablet 250 mg PO DIRECTED Qty: 6 0RF Rx Instructions: Take two (2) tablets on day #1, then one (1) tablet day #2 thru #5 oseltamivir 75 MG capsule 75 mg PO BID Qty: 10 0RF Referrals Follow up/Referrals: Candace Jhaveri APRN [Primary Care Provider] - See instructions Activity Restrictions/Add. Instructions Additional Instructions/Restrictions: Drink plenty of fluids. Take tylenol or ibuprofen for pain or fever. Take the medications as directed. Follow up with your regular doctor. GO TO THE ER FOR ANY WORSENING SYMPTOMS Clinical Impressions Clinical Impression: Viral syndrome Stand Alone Forms Stand Alone Forms: Work/School Release Instructions Patient Instructions: DI for Viral Syndrome Discharge ED Provider: Thanh Crawford [facility] General Stated complaint: sore throat,cough congestion Time Seen by Provider: 01/02/22 19:46 History of Present Illness Provider Complaint: She states that for the past 2 days she has had headache, chills, low grade fever and a scratchy sore throat. Related Data Previous Rx's Medication Instructions Recorded azithromycin 250 mg tablet 250 mg PO DIRECTED #6 tabs 10/11/21 oseltamivir 75 mg capsule 75 mg PO BID #10 caps 10/11/21 wiahfndryhgshgk-pwjekhpmfimitwy-VB 5 ml PO Q6H PRN Cough #240 mL 01/02/22 2 mg-30 mg-10 mg/5 mL oral syrup (Bromfed DM) ondansetron 4 mg disintegrating 4 mg PO Q8H PRN Nausea #12 tabs 01/02/22 tablet Allergies Allergy/AdvReac Type Severity Reaction Status Date / Time penicillin G [PENICILLIN G] Allergy Mild Verified 01/02/22 19:52 [facility] Social History Smoking Status: Never smoker alcohol intake: never substance use type: denies use current occupational status: other Travel in the last 8 weeks: None household members: significant other and children housing: house ROS Obtained: Yes All systems reviewed & no additional complaints except as documented Constitutional Constitutional: Reports chills and Reports fever(s) Eyes Eyes: Denies eye discharge ENT Ears, Nose, Mouth, and Throat: Reports as per HPI Cardiovascular Cardiovascular: Denies chest pain Respiratory Respiratory: Denies chest congestion and Reports cough Gastrointestinal Gastrointestingal: Reports nausea; Denies abdominal pain, constipation, cramping, diarrhea or vomiting Musculoskeletal Musculoskeletal: Denies arthralgias Integumentary/Breasts Skin/Breast: Denies rash Neurologic Neurologic: Denies paresthesias Physical Exam General General appearance: alert and in no apparent distress Head Head exam: atraumatic, normocephalic and normal inspection Eye Eye exam: Present normal appearance, PERRL and EOMI ENT ENT exam: Present normal exam, normal oropharynx, mucous membranes moist, TM's normal bilaterally and normal external ear exam Neck Neck exam: Present normal inspection, full ROM and trachea midline; Absent meningismus or lymphadenopathy Chest Chest inspection: Present normal inspection and symmetric chest wall rise; Absent tenderness Respiratory Respiratory exam: Present normal lung sounds bilaterally; Absent respiratory distress Cardiovascular Cardiovascular exam: Present regular rate and normal rhythm; Absent JVD Abdominal Exam Abdominal exam: Present soft and normal bowel sounds; Absent distention, tenderness or guarding Extremities Exam Extremities exam: Present normal inspection, full ROM and normal capillary refill; Absent calf tenderness Back Exam Back exam: Present normal inspection; Absent tenderness
[2022-01-02 19:50] VITALS: BP 131/78; PULSE 74; RESP 18; TEMP 36.8; O2SAT 98; BMI 43.9
[2022-01-02 20:01] LABS: UTC Strep Screen (Rapid) Negative (Negative)
[2022-01-02 20:25] VITALS: BP 131/78; PULSE 74; RESP 18; TEMP 36.8
[2022-01-02 20:36] LABS: Adenovirus,PCR Not Detected (NotDetected); Bordetella Pertussis Not Detected (NotDetected); Chlamydophila Pneumoniae, PCR Not Detected (NotDetected); Coronavirus 19, PCR Not Detected (NotDetected); Coronavirus 229E Not Detected (NotDetected); Coronavirus NL63 Not Detected (NotDetected); Coronavirus OC43 Not Detected (NotDetected); Coronovirus HKU1,PCR Not Detected (NotDetected); Human Metapneumovirus Not Detected (NotDetected); Influenza A, PCR Not Detected (NotDetected); Influenza AH1, 2009 Not Detected (NotDetected); Influenza AH1, PCR Not Detected (NotDetected); Influenza AH3,PCR Not Detected (NotDetected); Influenza B, PCR Not Detected (NotDetected); Mycoplasma Pneumoniae, PCR Not Detected (NotDetected); Parainfluenza 1, PCR Not Detected (NotDetected); Parainfluenza 2, PCR Not Detected (NotDetected); Parainfluenza 3, PCR Not Detected (NotDetected); Respiratory Syncytial Virus Not Detected (NotDetected); Rhinovirus/Enterovirus Not Detected (NotDetected)
[2022-01-03 01:22] LABS: Parainfluenza 4, PCR Detected (NotDetected)
== END 2022-01-02 20:31 | disposition home or self-care (01) ==
PROVIDERS: Emergency Provider Nurse Practitioner Family; PCP Nurse Practitioner Family
DX: J02.9 Acute pharyngitis, unspecified (principal); B34.8 Other viral infections of unspecified site; R50.9 Fever, unspecified; R05.9 Cough, unspecified; R51.9 Headache, unspecified; R11.0 Nausea; Z20.822 Contact with and (suspected) exposure to COVID-19; Z79.899 Other long term (current) drug therapy; Z88.0 Allergy status to penicillin
CPT/HCPCS: 87581; 87632; 87798; 87880; 99213; C9803; G0463; U0003; U0005

== ENCOUNTER 2022-01-23 11:29 | Emergency (ER) | payer BC, SELFPAY ==
[2022-01-23 13:40] VITALS: BP 97/64; PULSE 71; RESP 23; TEMP 36.4; O2SAT 98; BMI 43.9
--- NOTE | 2022-01-23 13:52 | EXP.UTC ---
Discharge Plan Disposition Patient Disposition: Home, Self-Care Condition: Good Prescriptions Prescriptions: New polymyxin B sulf-trimethoprim [Polytrim] 10,000 unit- 1 mg/mL drops 2 drp ophthalmic (eye) Q6H 7 Days Qty: 10 0RF Rx Instructions: while awake; do not exceed 6 doses in 24 hours albuterol sulfate [Proventil HFA] 90 mcg/actuation HFA aerosol inhaler 1 inh inhalation Q6H PRN (Reason: shortness of breath or wheezing) Qty: 8.5 0RF methylprednisolone [Medrol (Cristian)] 4 mg tablets,dose pack See Rx Instructions .Route .COMPLEX 6 Days Qty: 21 0RF Rx Instructions: taper pack; guaifenesin [Mucinex] 600 mg tablet extended release 12hr 600 mg PO BID PRN (Reason: cough) Qty: 20 0RF azithromycin [Zithromax Z-Cristian] 250 mg tablet See Rx Instructions .ROUTE .COMPLEX 5 Days Qty: 6 0RF Rx Instructions: For 250 mg dose pack: take 500 mg today (day 1), then 250 mg for 4 days (days 2-5) No Action norgestimate-ethinyl estradiol [Estarylla] 0.25-35 mg-mcg tablet 1 tab PO DAILY Referrals Follow up/Referrals: Candace Jhaveri APRN [Primary Care Provider] - See instructions Activity Restrictions/Add. Instructions Additional Instructions/Restrictions: Start antibiotic today. Be sure to complete entire prescription even if feeling better Monitor temp. Tylenol every 4 hours as needed and / or ibuprofen every 6 hours as needed ( As long as your primary care physician has told you that it ok to take both. For fever/aches/pains ER if no less than 101 despite Tylenol or Motrin Humidifier/vaporizer or hot steamy shower Inhaler every 4-6 hours as needed like we discussed. If unsure how to use it, ask pharmacist to demonstrate how. Should help open airways and improve cough, wheezing, and shortness of breath Mucinex for your cough and chest congestion Be sure to drink lots of water. *Start steroid today. Helps with inflammation therefore, cough and wheezing. Follow directions on the package. Reviewed side effects. Patient reports taking them before. Follow up IMMEDIATELY for new or worsening of symptoms OR no noticeable improvement over the next 48-72 hours. 911 immediately for any life threatening symptoms such as chest pain or difficulty breathing Wash hands well before and after applying eye drops Follow up with your Family Doctor or eye doctor if no improvement Clinical Impressions Clinical Impression: Sinusitis, Bronchitis Stand Alone Forms Stand Alone Forms: Work/School Release Instructions Patient Instructions: DI for Sinusitis, Sinusitis, Acute Bronchitis, Conjunctivitis, DI for Conjunctivitis Discharge ED Provider: Mary Lozano [facility] [place] General Stated complaint: Congestion, Cough, eye redness w/ drainage, SOA Mode of Arrival: Ambulatory Source of Information: Patient Limitations: No Limitations Time Seen by Provider: 01/23/22 13:52 Description of Symptoms (Recalled from Triage Doc. by RN): PATIENT C/O COUGH WITH GREEN SPUTUM, CONGESTION, SOA, AND POSSIBLE PINK EYE. SHE REPORTS HAVING PARAINFLUENZA AND FLU SINCE THE BEGINNING OF THE MONTH HEENT Symptoms (Recalled from RN notes): Yes Resp Symptoms (Recalled from RN notes): Yes Skin Symptoms (Recalled from RN notes): No MS Symptoms (Recalled from RN notes): No Functional Status (Recalled from RN notes): WNL History of Present Illness Provider Complaint: Patient states that she has had parinfluenza and flu the start of Nov now she has been having chest congestion and at times coughing up some greenish colored mucous States that this morning she woke up with both eyes looking a little red with drainage State that she thinks she may have pink eye too Related Data Home Medications Medication Instructions Recorded Confirmed norgestimate 0.25 mg-ethinyl 1 tab PO DAILY control 01/23/22 01/23/22 estradiol 35 mcg tablet (Estarylla) Previous Rx's Medicatio
[2022-01-23 14:06] VITALS: BP 120/74; PULSE 71; RESP 23; TEMP 36.4; O2SAT 98
== END 2022-01-23 14:15 | disposition home or self-care (01) ==
PROVIDERS: Emergency Provider Nurse Practitioner; PCP Nurse Practitioner Family
DX: R06.02 Shortness of breath (principal); R05.9 Cough, unspecified; R09.89 Other specified symptoms and signs involving the circulatory and respiratory systems; D64.9 Anemia, unspecified; F32.A Depression, unspecified; F41.9 Anxiety disorder, unspecified; Z79.51 Long term (current) use of inhaled steroids; Z79.52 Long term (current) use of systemic steroids; Z79.899 Other long term (current) drug therapy; Z79.3 Long term (current) use of hormonal contraceptives
CPT/HCPCS: 99213; G0463

== ENCOUNTER 2022-02-06 09:47 | Emergency (ER) | payer BC, SELFPAY ==
[2022-02-06 10:40] VITALS: BP 132/77; PULSE 84; RESP 22; TEMP 37.1; O2SAT 98; BMI 43.7
[2022-02-06 10:58] LABS: UTC Strep Screen (Rapid) Negative (Negative)
--- NOTE | 2022-02-06 11:00 | EXP.UTC ---
Discharge Plan Disposition Patient Disposition: Home, Self-Care Condition: Good Prescriptions Prescriptions: New fluticasone propionate [fluticasone propionate] 50 mcg/actuation spray,suspension 1 spray intranasal DAILY Qty: 9.9 0RF Rx Instructions: 1 pray each nostril daily loratadine [Claritin] 10 mg tablet 10 mg PO DAILY Qty: 30 0RF No Action norgestimate-ethinyl estradiol [Estarylla] 0.25-35 mg-mcg tablet 1 tab PO DAILY polymyxin B sulf-trimethoprim [Polytrim] 10,000 unit- 1 mg/mL drops 2 drp ophthalmic (eye) Q6H 7 Days Qty: 10 0RF Rx Instructions: while awake; do not exceed 6 doses in 24 hours albuterol sulfate [Proventil HFA] 90 mcg/actuation HFA aerosol inhaler 1 inh inhalation Q6H PRN (Reason: shortness of breath or wheezing) Qty: 8.5 0RF methylprednisolone [Medrol (Cristian)] 4 mg tablets,dose pack See Rx Instructions .Route .COMPLEX 6 Days Qty: 21 0RF Rx Instructions: taper pack; guaifenesin [Mucinex] 600 mg tablet extended release 12hr 600 mg PO BID PRN (Reason: cough) Qty: 20 0RF azithromycin [Zithromax Z-Cristian] 250 mg tablet See Rx Instructions .ROUTE .COMPLEX 5 Days Qty: 6 0RF Rx Instructions: For 250 mg dose pack: take 500 mg today (day 1), then 250 mg for 4 days (days 2-5) Referrals Follow up/Referrals: Candace Jhaveri APRN [Primary Care Provider] - See instructions Activity Restrictions/Add. Instructions Additional Instructions/Restrictions: any symptoms worsen return or be seen in ed follow up with pcp Clinical Impressions Clinical Impression: Allergic rhinitis Instructions Patient Instructions: Allergic Rhinitis Discharge ED Provider: Tong ([facility])[place] [place] HPI General Stated complaint: Headache, neck pain Time Seen by Provider: 02/06/22 11:01 HEENT Symptoms (Recalled from RN notes): Yes Resp Symptoms (Recalled from RN notes): No History of Present Illness Provider Complaint: 26 yr old female presents for neck pain, headache and clear nasal drainage for 4 days Related Data Home Medications Medication Instructions Recorded Confirmed norgestimate 0.25 mg-ethinyl 1 tab PO DAILY control 01/23/22 01/23/22 estradiol 35 mcg tablet (Estarylla) Previous Rx's Medication Instructions Recorded albuterol sulfate 90 mcg/actuation 1 inh inhalation Q6H PRN shortness 01/23/22 aerosol inhaler (Proventil HFA) of breath or wheezing #8.5 grams azithromycin 250 mg tablet See Rx Instructions PO .COMPLEX 5 01/23/22 (Zithromax Z-Cristian) days #6 tabs guaifenesin 600 mg tablet, 600 mg PO BID PRN cough #20 tabs 01/23/22 extended release 12 hr (Mucinex) methylprednisolone 4 mg tablets in See Rx Instructions .Route 01/23/22 a dose pack (Medrol (Cristian)) .COMPLEX 6 days #21 tabs polymyxin B sulfate 10,000 2 drp ophthalmic (eye) Q6H 7 days 01/23/22 unit-trimethoprim 1 mg/mL eye #10 mL drops (Polytrim) fluticasone propionate 50 1 spray intranasal DAILY #9.9 mL 02/06/22 mcg/actuation nasal spray,suspension loratadine 10 mg tablet (Claritin) 10 mg PO DAILY #30 tabs 02/06/22 Allergies Allergy/AdvReac Type Severity Reaction Status Date / Time penicillin G [PENICILLIN G] Allergy Mild Verified 01/02/22 19:52 [facility] Disclaimer: The information contained in this section may have been updated after the patient was seen, as this information can be updated by other users. 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 , [employer]) Anemia Anxiety Depression Surgical History , [employer]) History of right knee surgery History of tonsillectomy History of wisdom tooth extraction Social History , [employer]) Smoking Status: Never smoker alcohol intake: never substance use type: denies use current occupational status: other Travel in the last 8 weeks: None household members: significant other
[2022-02-06 11:14] VITALS: BP 132/77; PULSE 84; RESP 22; TEMP 37.1; O2SAT 98
== END 2022-02-06 11:19 | disposition home or self-care (01) ==
PROVIDERS: Emergency Provider Nurse Practitioner Family; PCP Nurse Practitioner Family
DX: M54.2 Cervicalgia (principal); R51.9 Headache, unspecified; R05.9 Cough, unspecified; D64.9 Anemia, unspecified; F32.A Depression, unspecified; F41.9 Anxiety disorder, unspecified; Z79.51 Long term (current) use of inhaled steroids; Z79.52 Long term (current) use of systemic steroids; Z79.899 Other long term (current) drug therapy; Z88.0 Allergy status to penicillin; Z79.890 Hormone replacement therapy
CPT/HCPCS: 87880; 99213; G0463

== ENCOUNTER 2022-02-12 08:53 | Emergency (ER) | payer BC, SELFPAY ==
[2022-02-12 09:14] VITALS: BP 135/72; PULSE 96; RESP 16; TEMP 37.1; O2SAT 100; BMI 43.4
[2022-02-12 09:17] LABS: UTC Strep Screen (Rapid) Negative (Negative)
--- NOTE | 2022-02-12 09:36 | EXP.UTC ---
Discharge Plan Disposition Patient Disposition: Home, Self-Care Condition: Good Prescriptions Prescriptions: New qxfukrmcxipmcnk-riipdvirb-TW [Bromfed DM] 2-30-10 mg/5 mL syrup 10 ml PO Q6H PRN (Reason: cold symptoms) Qty: 118 0RF No Action fluticasone propionate [fluticasone propionate] 50 mcg/actuation spray,suspension 1 spray intranasal DAILY Qty: 9.9 0RF Rx Instructions: 1 pray each nostril daily loratadine [Claritin] 10 mg tablet 10 mg PO DAILY Qty: 30 0RF norgestimate-ethinyl estradiol [Estarylla] 0.25-35 mg-mcg tablet 1 tab PO DAILY polymyxin B sulf-trimethoprim [Polytrim] 10,000 unit- 1 mg/mL drops 2 drp ophthalmic (eye) Q6H 7 Days Qty: 10 0RF Rx Instructions: while awake; do not exceed 6 doses in 24 hours albuterol sulfate [Proventil HFA] 90 mcg/actuation HFA aerosol inhaler 1 inh inhalation Q6H PRN (Reason: shortness of breath or wheezing) Qty: 8.5 0RF methylprednisolone [Medrol (Cristian)] 4 mg tablets,dose pack See Rx Instructions .Route .COMPLEX 6 Days Qty: 21 0RF Rx Instructions: taper pack; guaifenesin [Mucinex] 600 mg tablet extended release 12hr 600 mg PO BID PRN (Reason: cough) Qty: 20 0RF azithromycin [Zithromax Z-Cristian] 250 mg tablet See Rx Instructions .ROUTE .COMPLEX 5 Days Qty: 6 0RF Rx Instructions: For 250 mg dose pack: take 500 mg today (day 1), then 250 mg for 4 days (days 2-5) Referrals Follow up/Referrals: Candace Jhaveri APRN [Primary Care Provider] - See instructions Clinical Impressions Clinical Impression: URI (upper respiratory infection) Instructions Patient Instructions: DI for Viral Upper Respiratory Infection -- Adult Discharge ED Provider: Caty Carter [facility] General Stated complaint: sore throat,cough Mode of Arrival: Ambulatory Source of Information: Patient Limitations: No Limitations Time Seen by Provider: 02/12/22 09:37 Description of Symptoms (Recalled from Triage Doc. by RN): pt comes in with c/o sore throat, productive cough. symptoms began 2 days ago HEENT Symptoms (Recalled from RN notes): Yes Resp Symptoms (Recalled from RN notes): Yes Skin Symptoms (Recalled from RN notes): No MS Symptoms (Recalled from RN notes): No Functional Status (Recalled from RN notes): n/a History of Present Illness Provider Complaint: Pt reports that she has had a headache all week and 2 days ago she started having clear sinus drainage, sore throat, post nasal drainage and a cough. She states that she took and allergy pill for her symptoms, but this did not help. Related Data Home Medications Medication Instructions Recorded Confirmed norgestimate 0.25 mg-ethinyl 1 tab PO DAILY control 01/23/22 01/23/22 estradiol 35 mcg tablet (Estarylla) Previous Rx's Medication Instructions Recorded albuterol sulfate 90 mcg/actuation 1 inh inhalation Q6H PRN shortness 01/23/22 aerosol inhaler (Proventil HFA) of breath or wheezing #8.5 grams azithromycin 250 mg tablet See Rx Instructions PO .COMPLEX 5 01/23/22 (Zithromax Z-Cristian) days #6 tabs guaifenesin 600 mg tablet, 600 mg PO BID PRN cough #20 tabs 01/23/22 extended release 12 hr (Mucinex) methylprednisolone 4 mg tablets in See Rx Instructions .Route 01/23/22 a dose pack (Medrol (Cristian)) .COMPLEX 6 days #21 tabs polymyxin B sulfate 10,000 2 drp ophthalmic (eye) Q6H 7 days 01/23/22 unit-trimethoprim 1 mg/mL eye #10 mL drops (Polytrim) fluticasone propionate 50 1 spray intranasal DAILY #9.9 mL 02/06/22 mcg/actuation nasal spray,suspension loratadine 10 mg tablet (Claritin) 10 mg PO DAILY #30 tabs 02/06/22 xawolumavfkrpzz-zjydjqsvxrkehpb-DR 10 ml PO Q6H PRN cold symptoms 02/12/22 2 mg-30 mg-10 mg/5 mL oral syrup #118 mL (Bromfed DM) Allergies Allergy/AdvReac Type Severity Reaction Status Date / Time penicillin G [PENICILLIN G] Allergy Mild Verified 02/12/22 09:16 Worker's Comp Is this a Worker's Comp case?: No PFSH PFSH Disc
[2022-02-12 09:55] VITALS: BP 135/72; PULSE 96; RESP 16; TEMP 37.1
== END 2022-02-12 09:57 | disposition home or self-care (01) ==
PROVIDERS: Emergency Provider Nurse Practitioner Family; PCP Nurse Practitioner Family
DX: J06.9 Acute upper respiratory infection, unspecified (principal)
CPT/HCPCS: 87880; 99212; G0463

== ENCOUNTER 2022-03-07 06:07 | Emergency (ER) | payer BC, SELFPAY ==
[2022-03-07 06:08] VITALS: BP 125/81; PULSE 93; RESP 18; TEMP 36.9; O2SAT 99; BMI 40.3
[2022-03-07 07:12] VITALS: BP 125/81; PULSE 93; RESP 16; TEMP 36.7; O2SAT 100
--- NOTE | 2022-03-07 07:12 | HMH.EDEYEP ---
Discharge Plan Disposition Patient Disposition: Home, Self-Care Chief Complaint: Eye Problems Prescriptions Prescriptions: No Action fluticasone propionate [fluticasone propionate] 50 mcg/actuation spray,suspension 1 spray intranasal DAILY Qty: 9.9 0RF Rx Instructions: 1 pray each nostril daily loratadine [Claritin] 10 mg tablet 10 mg PO DAILY Qty: 30 0RF norgestimate-ethinyl estradiol [Estarylla] 0.25-35 mg-mcg tablet 1 tab PO DAILY polymyxin B sulf-trimethoprim [Polytrim] 10,000 unit- 1 mg/mL drops 2 drp ophthalmic (eye) Q6H 7 Days Qty: 10 0RF Rx Instructions: while awake; do not exceed 6 doses in 24 hours albuterol sulfate [Proventil HFA] 90 mcg/actuation HFA aerosol inhaler 1 inh inhalation Q6H PRN (Reason: shortness of breath or wheezing) Qty: 8.5 0RF methylprednisolone [Medrol (Cristian)] 4 mg tablets,dose pack See Rx Instructions .Route .COMPLEX 6 Days Qty: 21 0RF Rx Instructions: taper pack; guaifenesin [Mucinex] 600 mg tablet extended release 12hr 600 mg PO BID PRN (Reason: cough) Qty: 20 0RF azithromycin [Zithromax Z-Cristian] 250 mg tablet See Rx Instructions .ROUTE .COMPLEX 5 Days Qty: 6 0RF Rx Instructions: For 250 mg dose pack: take 500 mg today (day 1), then 250 mg for 4 days (days 2-5) [id number]-[id number] [Bromfed DM] 2-30-10 mg/5 mL syrup 10 ml PO Q6H PRN (Reason: cold symptoms) Qty: 118 0RF Referrals Follow up/Referrals: Candace Jhaveri APRN [Primary Care Provider] - See instructions Clinical Impressions Clinical Impression: Acute left eye pain Instructions Patient Instructions: DI for Eye Pain Discharge ED Provider: Patrick Braxton Eye Problem HPI General Chief complaint: Eye Problems Stated complaint: left eye irritation and painful Time Seen by Provider: 03/07/22 07:12 Mode of Arrival: Ambulatory Source of Information: Patient Limitations: No Limitations Description of Symptoms (Recalled from ER Triage Doc. by RN): pt c/o of left eye irritation History of Present Illness HPI Narrative: has lt eye irritation this am - no contacts - wears glasses - does not have vision loss - chief complaint: eye redness Onset (ago): hour(s) Onset description: awoke with symptoms Duration: intermittent Location: left eye Eye Symptoms: burning Place: home Severity: moderate Treatments Prior to Arrival: none Related Data Home Medications Medication Instructions Recorded Confirmed norgestimate 0.25 mg-ethinyl 1 tab PO DAILY control 01/23/22 01/23/22 estradiol 35 mcg tablet (Estarylla) Previous Rx's Medication Instructions Recorded albuterol sulfate 90 mcg/actuation 1 inh inhalation Q6H PRN shortness 01/23/22 aerosol inhaler (Proventil HFA) of breath or wheezing #8.5 grams azithromycin 250 mg tablet See Rx Instructions PO .COMPLEX 5 01/23/22 (Zithromax Z-Cristian) days #6 tabs guaifenesin 600 mg tablet, 600 mg PO BID PRN cough #20 tabs 01/23/22 extended release 12 hr (Mucinex) methylprednisolone 4 mg tablets in See Rx Instructions .Route 01/23/22 a dose pack (Medrol (Cristian)) .COMPLEX 6 days #21 tabs polymyxin B sulfate 10,000 2 drp ophthalmic (eye) Q6H 7 days 01/23/22 unit-trimethoprim 1 mg/mL eye #10 mL drops (Polytrim) fluticasone propionate 50 1 spray intranasal DAILY #9.9 mL 02/06/22 mcg/actuation nasal spray,suspension loratadine 10 mg tablet (Claritin) 10 mg PO DAILY #30 tabs 02/06/22 fpdsfemrqmcmogb-fzjjmryyjbejqgu-SZ 10 ml PO Q6H PRN cold symptoms 02/12/22 2 mg-30 mg-10 mg/5 mL oral syrup #118 mL (Bromfed DM) Allergies Allergy/AdvReac Type Severity Reaction Status Date / Time penicillin G [PENICILLIN G] Allergy Mild Verified 02/12/22 09:16 [facility] Disclaimer: The information contained in this section may have been updated after the patient was seen, as this information can be updated by other users. 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 (Reviewed 02/06/22 @ 11:07 by Russell Fortune ([facility] [employer])
== END 2022-03-07 07:26 | disposition home or self-care (01) ==
PROVIDERS: Emergency Provider Emergency Medicine; PCP Nurse Practitioner Family
DX: H57.12 Ocular pain, left eye (principal); H57.89 Other specified disorders of eye and adnexa; F41.9 Anxiety disorder, unspecified; D64.9 Anemia, unspecified
CPT/HCPCS: 99283

== ENCOUNTER 2022-03-23 17:41 | Emergency (ER) | payer BC, SELFPAY ==
[2022-03-23 17:55] VITALS: BP 143/90; PULSE 121; RESP 17; TEMP 37.4; O2SAT 98; BMI 44.1
[2022-03-23 18:07] VITALS: BP 143/90; PULSE 121; RESP 17; TEMP 37.4; O2SAT 98
[2022-03-23 18:21] LABS: UTC Influenza A Antigen Negative (Negative); UTC Strep Screen (Rapid) Positive (Negative)
[2022-03-23 18:22] LABS: UTC Influenza B Antigen Negative (Negative)
--- NOTE | 2022-03-23 18:31 | EXP.UTC ---
Discharge Plan Disposition Patient Disposition: Home, Self-Care Condition: Good Prescriptions Prescriptions: New azithromycin [Zithromax Z-Cristian] 250 mg tablet See Rx Instructions .ROUTE .COMPLEX 5 Days Qty: 6 0RF Rx Instructions: For 250 mg dose pack: take 500 mg today (day 1), then 250 mg for 4 days (days 2-5) No Action fluticasone propionate [fluticasone propionate] 50 mcg/actuation spray,suspension 1 spray intranasal DAILY Qty: 9.9 0RF Rx Instructions: 1 pray each nostril daily loratadine [Claritin] 10 mg tablet 10 mg PO DAILY Qty: 30 0RF norgestimate-ethinyl estradiol [Estarylla] 0.25-35 mg-mcg tablet 1 tab PO DAILY polymyxin B sulf-trimethoprim [Polytrim] 10,000 unit- 1 mg/mL drops 2 drp ophthalmic (eye) Q6H 7 Days Qty: 10 0RF Rx Instructions: while awake; do not exceed 6 doses in 24 hours albuterol sulfate [Proventil HFA] 90 mcg/actuation HFA aerosol inhaler 1 inh inhalation Q6H PRN (Reason: shortness of breath or wheezing) Qty: 8.5 0RF methylprednisolone [Medrol (Cristian)] 4 mg tablets,dose pack See Rx Instructions .Route .COMPLEX 6 Days Qty: 21 0RF Rx Instructions: taper pack; guaifenesin [Mucinex] 600 mg tablet extended release 12hr 600 mg PO BID PRN (Reason: cough) Qty: 20 0RF azithromycin [Zithromax Z-Cristian] 250 mg tablet See Rx Instructions .ROUTE .COMPLEX 5 Days Qty: 6 0RF Rx Instructions: For 250 mg dose pack: take 500 mg today (day 1), then 250 mg for 4 days (days 2-5) odsrqelthhkvxmn-rqtjxjhiz-TI [Bromfed DM] 2-30-10 mg/5 mL syrup 10 ml PO Q6H PRN (Reason: cold symptoms) Qty: 118 0RF Referrals Follow up/Referrals: Candace Jhaveri APRN [Primary Care Provider] - See instructions Activity Restrictions/Add. Instructions Additional Instructions/Restrictions: *Monitor Temp, Over the counter Motrin or Tylenol as directed/as needed Tylenol every 4 hours and Motrin every 6 hours (as long as your family doctor has told you that you can take it) for fever or pain. and straight to ER if unable to lower temp less than 101.0 after medication given *Warm salt water gargles may help to soothe the throat *Throat Lozenges? *Warm fluids like tea with honey may help to soothe the throat? *Sleep elevated *Humidifier/Vaporizer *If you did not take Penicillin shot or was unable to, start taking antibiotic immediately and make sure that you take it for the FULL length of time although you should start to feel better in 24-48 hours *change toothbrush and toothpaste 24-48 hours after starting to take antibiotics so you do not reinfect yourself Monitor Temp. Tylenol and/or Ibuprofen as needed. ER if fever is no less than 101 despite alternating Tylenol and Ibuprofen * Encourage fluids, water, Gatorade, powerade, pedialyte if infant/toddler/or child *Cold fluids, popsicles and ice cream may feel good on his throat Follow up IMMEDIATELY for new or worsening symptoms or no Noticeable improvement over the next 48-72 hours. 911 for difficulty breathing or swallowing Clinical Impressions Clinical Impression: Strep throat Stand Alone Forms Stand Alone Forms: Work/School Release Instructions Patient Instructions: DI for Strep Throat, Strep Throat Discharge ED Provider: Mary Lozano [facility] [place] General Stated complaint: sore thoat, body aches Mode of Arrival: Ambulatory Source of Information: Patient Limitations: No Limitations Time Seen by Provider: 03/23/22 18:31 Description of Symptoms (Recalled from Triage Doc. by RN): PATIENT C/O BODY ACHES, CHILLS, FEVER, CONGESTION AND SORE THROAT SINCE THIS MORNING HEENT Symptoms (Recalled from RN notes): Yes Resp Symptoms (Recalled from RN notes): No Skin Symptoms (Recalled from RN notes): No MS Symptoms (Recalled from RN notes): No Functional Status (Recalled from RN notes): WNL History of Present Illness Provider Complaint: Patient states that she has been having sore thr
== END 2022-03-23 18:45 | disposition home or self-care (01) ==
PROVIDERS: Emergency Provider Nurse Practitioner; PCP Nurse Practitioner Family
DX: J02.0 Streptococcal pharyngitis (principal)
CPT/HCPCS: 87804; 87880; 99212; 99213; G0463

== ENCOUNTER 2022-04-16 11:30 | Emergency (ER) | payer BC, SELFPAY ==
[2022-04-16 11:38] VITALS: BP 132/80; PULSE 91; O2SAT 98; BMI 42.9
[2022-04-16 11:45] VITALS: BP 132/80; PULSE 83; RESP 16; TEMP 36.7; O2SAT 99; BMI 42.9
--- NOTE | 2022-04-16 11:50 | CT_ITS ---
PROCEDURE INFORMATION: Exam: CT Abdomen And Pelvis With Contrast Exam date and time: 04/16/2022 12:21 PM Age: 26 years old Clinical indication: Abdominal pain; Generalized; Additional info: Left abdomen pain TECHNIQUE: Imaging protocol: Computed tomography of the abdomen and pelvis with contrast. Radiation optimization: All CT scans at this facility use at least one of these dose optimization techniques: automated exposure control; mA and/or kV adjustment per patient size (includes targeted exams where dose is matched to clinical indication); or iterative reconstruction. Contrast material: ISOVUE; Contrast volume: 75 ml; Contrast route: IV; Other protocol: This patient has received 0 known CTs and 0 known cardiac nuclear medicine studies in the 12 months prior to the current study. COMPARISON: US OB TRANSVAGINAL 03/06/2019 3:11 PM FINDINGS: Liver: Normal. No mass. Gallbladder and bile ducts: Normal. No calcified stones. No ductal dilation. Pancreas: Normal. No ductal dilation. Spleen: Normal. No splenomegaly. Adrenal glands: Normal. No mass. Kidneys and ureters: Normal. No hydronephrosis. Stomach and bowel: Unremarkable. No obstruction. No mucosal thickening. Appendix: No evidence of appendicitis. Intraperitoneal space: Unremarkable. No free air. No significant fluid collection. Vasculature: Unremarkable. No abdominal aortic aneurysm. Lymph nodes: Unremarkable. No enlarged lymph nodes. Urinary bladder: Unremarkable as visualized. Reproductive: 3.9 x 5.3 cm right ovarian cyst. Ovaries themselves not optimally visualized. Bones/joints: Unremarkable. No acute fracture. Soft tissues: Unremarkable. IMPRESSION: Right ovarian cyst. Otherwise, grossly unremarkable study.
[2022-04-16 11:55] LABS: Microscopic, Urine URINE MICROSCOPIC (MICROSCOPIC)
[2022-04-16 11:56] LABS: Appearance,Urine CLEAR (Clear); Bilirubin,Urine Negative (Negative); Blood, Urine Negative (Negative); Color,Urine YELLOW (Yellow); Glucose,Urine (UA) Negative (Negative); Ketones,Urine Negative (Negative); Leukocyte Esterase,Urine Negative (Negative); Nitrate,Urine Negative (Negative); PH,Urine 5.5 (5.0-8.5); Protein,Urine Negative (Negative); Specific Gravity, Urine >= 1.030 (1.005-1.030); Urobilinogen,Urine 0.2 EU/dl (0.2)
[2022-04-16 11:57] LABS: Basophils # 0.1 K/mm3 (0-0.2); Basophils % 1.4 % (0.1-2.0); Eosinophils # 0.2 K/mm3 (0.0-0.4); Eosinophils % 3.8 % (0.1-12.0); Hematocrit 36.4 % (37.0-47.0); Hemoglobin 12.5 g/dL (12.2-16.2); Lymphocytes # 2.3 K/mm3 (0.7-4.5); Lymphocytes % 35.9 % (10-50); Mean Corpuscular HGB Conc 34.4 g/dL (31.8-35.4); Mean Corpuscular Hemoglobin 27.2 pg (27.0-31.2); Mean Corpuscular Volume 79.2 fl (81-99); Mean Platelet Volume 7.1 fl (7.4-10.4); Monocytes # 0.2 K/mm3 (0.1-1.0); Monocytes % 2.6 % (1.7-9.3); Neutrophils # 3.6 K/mm3 (1.8-7.8); Neutrophils % 56.2 % (37.0-80.0); Platelet Count 287 K/mm3 (142-424); Red Cell Distribution Width 15.1 % (11.5-17.5); White Blood Count 6.3 K/mm3 (4.8-10.8)
[2022-04-16 12:00] LABS: Urine Pregnancy, HCG Qual. Negative (Negative)
[2022-04-16 12:01] VITALS: BP 114/71; PULSE 79; O2SAT 100
[2022-04-16 12:01] LABS: Chloride 111 mmol/L (98-107); Sodium 141 mmol/L (136-145)
[2022-04-16 12:04] LABS: Alanine Aminotransferase 18 U/L (12-78); Alkaline Phosphatase 77 U/L (38-126); Amylase 65 U/L (30-110); Aspartate Amino Transferase 25 U/L (14-36); Bilirubin,Total 0.3 mg/dl (0.2-1.3); Blood Urea Nitrogen 11 mg/dl (7-17); Calcium 8.5 mg/dl (8.4-10.2); Carbon Dioxide 24 mmol/L (22.0-30.0); Creatinine Clearance Estimated 105 mL/min (50-200); Estimated Glomerular Filt Rate 101 ml/min (>60); GFR (African American) 122 ML/MIN (>60); Glucose 89 mg/dl (74-100); Lipase 42 U/L (23-300)
[2022-04-16 12:05] LABS: Albumin Level 3.9 g/dl (3.5-5.0); Albumin/Globulin Ratio 1.3 (1.1-1.8); Total Protein,Serum 6.9 g/dl (6.3-8.2)
--- NOTE | 2022-04-16 12:07 | HMH.EDGENADL ---
Discharge Plan Disposition Patient Disposition: Home, Self-Care Condition: Good Chief Complaint: Abdominal Pain Prescriptions Prescriptions: No Action fluticasone propionate [fluticasone propionate] 50 mcg/actuation spray,suspension 1 spray intranasal DAILY Qty: 9.9 0RF Rx Instructions: 1 pray each nostril daily loratadine [Claritin] 10 mg tablet 10 mg PO DAILY Qty: 30 0RF azithromycin [Zithromax Z-Cristian] 250 mg tablet See Rx Instructions .ROUTE .COMPLEX 5 Days Qty: 6 0RF Rx Instructions: For 250 mg dose pack: take 500 mg today (day 1), then 250 mg for 4 days (days 2-5) norgestimate-ethinyl estradiol [Estarylla] 0.25-35 mg-mcg tablet 1 tab PO DAILY polymyxin B sulf-trimethoprim [Polytrim] 10,000 unit- 1 mg/mL drops 2 drp ophthalmic (eye) Q6H 7 Days Qty: 10 0RF Rx Instructions: while awake; do not exceed 6 doses in 24 hours albuterol sulfate [Proventil HFA] 90 mcg/actuation HFA aerosol inhaler 1 inh inhalation Q6H PRN (Reason: shortness of breath or wheezing) Qty: 8.5 0RF methylprednisolone [Medrol (Cristian)] 4 mg tablets,dose pack See Rx Instructions .Route .COMPLEX 6 Days Qty: 21 0RF Rx Instructions: taper pack; guaifenesin [Mucinex] 600 mg tablet extended release 12hr 600 mg PO BID PRN (Reason: cough) Qty: 20 0RF azithromycin [Zithromax Z-Cristian] 250 mg tablet See Rx Instructions .ROUTE .COMPLEX 5 Days Qty: 6 0RF Rx Instructions: For 250 mg dose pack: take 500 mg today (day 1), then 250 mg for 4 days (days 2-5) cyyipojlmgucdee-khjwbijxy-SG [Bromfed DM] 2-30-10 mg/5 mL syrup 10 ml PO Q6H PRN (Reason: cold symptoms) Qty: 118 0RF Referrals Follow up/Referrals: Candace Jhaveri APRN [Primary Care Provider] - See instructions Activity Restrictions/Add. Instructions Additional Instructions/Restrictions: Take ibuprofen for pain. Follow-up with your [employer]ER for right ovarian cyst, call Monday to make appointment. Return to the emergency department if severe pain, vomiting, or fever. Clinical Impressions Clinical Impression: Ovarian cyst, Abdominal pain Instructions Patient Instructions: DI for Acute Abdominal Pain, DI for Ovarian Cyst Discharge ED Provider: Marcelo Stokes General Adult HPI General Chief complaint: Abdominal Pain Stated complaint: LT abd pain vomiting diarrhea Time Seen by Provider: 04/16/22 11:48 Mode of Arrival: Ambulatory Source of Information: Patient Limitations: No Limitations Description of Symptoms (Recalled from ER Triage Doc. by RN): pt comes in with c/o left sided abd pain that began a few days ago. pt reports recent stomach bug. radiates to back. pt reports that yesterday she he a solid bm, she has otherwise had diarrhea. lmp was 3 weeks ago. History of Present Illness HPI narrative: Constant left lower quadrant abdominal pain for 2 days. She says yesterday it radiated into her groin area, today it radiates to her back. Denies fever, vomiting, diarrhea, constipation, urinary symptoms. Denies previous similar pains. Pain has been 6-8/10. She has tried Tylenol without improvement. States that she had a small amount of vaginal spotting last week Related Data Home Medications Medication Instructions Recorded Confirmed norgestimate 0.25 mg-ethinyl 1 tab PO DAILY control 01/23/22 04/16/22 estradiol 35 mcg tablet (Estarylla) Previous Rx's Medication Instructions Recorded albuterol sulfate 90 mcg/actuation 1 inh inhalation Q6H PRN shortness 01/23/22 aerosol inhaler (Proventil HFA) of breath or wheezing #8.5 grams azithromycin 250 mg tablet See Rx Instructions PO .COMPLEX 5 01/23/22 (Zithromax Z-Cristian) days #6 tabs guaifenesin 600 mg tablet, 600 mg PO BID PRN cough #20 tabs 01/23/22 extended release 12 hr (Mucinex) methylprednisolone 4 mg tablets in See Rx Instructions .Route 01/23/22 a dose pack (Medrol (Cristian)) .COMPLEX 6 days #21 tabs polymyxin B sulfate 10,000 2 drp ophthalmic (eye)
[2022-04-16 12:10] LABS: Bacteria,Urine Trace /lpf; RBC,Urine Occasional #/hpf (0-3); WBC,Urine Occasional #/hpf (0-3)
--- NOTE | 2022-04-16 12:14 | PC.NURSE ---
PT GOING TO CT
[2022-04-16 12:31] VITALS: BP 96/54; PULSE 77; O2SAT 98
--- NOTE | 2022-04-16 12:42 | PC.NURSE ---
SHERRIE ROUNDED AT ON PT NO COMPLAINTS AT THIS TIME
[2022-04-16 13:00] VITALS: BP 101/56; PULSE 77; O2SAT 98
--- NOTE | 2022-04-16 13:12 | PC.NURSE ---
CHECKED ON PT STATES NO COMPLAINTS AT THIS TIME
[2022-04-16 13:36] VITALS: BP 101/56; PULSE 77; RESP 16; TEMP 36.7; O2SAT 98
== END 2022-04-16 13:37 | disposition home or self-care (01) ==
PROVIDERS: Emergency Provider Emergency Medicine; PCP Nurse Practitioner Family
DX: N83.202 Unspecified ovarian cyst, left side (principal); R10.32 Left lower quadrant pain; D64.9 Anemia, unspecified; F41.8 Other specified anxiety disorders; Z90.49 Acquired absence of other specified parts of digestive tract
CPT/HCPCS: 74177; 80053; 81001; 81025; 82150; 83690; 85025; 96374; 99285; Q9967

== ENCOUNTER 2022-08-24 16:11 | Emergency (ER) | payer BC, SELFPAY ==
[2022-08-24 16:25] VITALS: BP 116/80; PULSE 96; RESP 18; TEMP 37.3; O2SAT 99; BMI 44.4
[2022-08-24 16:35] LABS: UTC Strep Screen (Rapid) Negative (Negative)
--- NOTE | 2022-08-24 16:44 | EXP.UTC ---
Discharge Plan Disposition Patient Disposition: Home, Self-Care Condition: Good Prescriptions Prescriptions: New fluticasone propionate [Flonase Allergy Relief] 50 mcg/actuation spray,suspension 1 - 2 spray intranasal DAILY Qty: 16 0RF Rx Instructions: administer into each nostril daily azithromycin [Zithromax Z-Cristian] 250 mg tablet See Rx Instructions .ROUTE .COMPLEX 5 Days Qty: 6 0RF Rx Instructions: For 250 mg dose pack: take 500 mg today (day 1), then 250 mg for 4 days (days 2-5) methylprednisolone [Medrol (Cristian)] 4 mg tablets,dose pack See Rx Instructions .Route .COMPLEX 6 Days Qty: 21 0RF Rx Instructions: taper pack; No Action norgestimate-ethinyl estradiol [Estarylla] 0.25-35 mg-mcg tablet 1 tab PO DAILY Referrals Follow up/Referrals: Candace Jhaveri APRN [Primary Care Provider] - See instructions Activity Restrictions/Add. Instructions Additional Instructions/Restrictions: *Monitor Temp, Over the counter Motrin or Tylenol as directed/as needed Tylenol every 4 hours and Motrin every 6 hours (as long as your family doctor has told you that you can take it) for fever or pain. and straight to ER if unable to lower temp less than 101.0 after medication given *Warm salt water gargles may help to soothe the throat *Throat Lozenges? *Warm fluids like tea with honey may help to soothe the throat? *Sleep elevated *Humidifier/Vaporizer *Flonase 2 sprays in each nostril daily but be aware that it may take 2-3 days before you notice improvement *Your throat swab was sent for culture. Those results are typically sent to your primary care. Be sure to follow up in 2-3 days with your family doctor/primary care physician if no improvement so they can review those result and treat if necessary. If you don?t have a primary care doctor, I recommend you get one but in the mean time, you will have to return to a walk in clinic Follow up IMMEDIATELY for new or worsening symptoms or no Noticeable improvement over the next 48-72 hours. 911 for difficulty breathing or swallowing Clinical Impressions Clinical Impression: Otitis media Instructions Patient Instructions: Middle Ear Infection Discharge ED Provider: Mary Lozano [facility] [place] HPI General Stated complaint: sore throat,body aches,nausea Mode of Arrival: Ambulatory Source of Information: Patient Limitations: No Limitations Time Seen by Provider: 08/24/22 16:44 Description of Symptoms (Recalled from Triage Doc. by RN): PATIENT C/O SORE THROAT, CHILLS, FATIGUE, AND BODY ACHES SINCE MONDAY HEENT Symptoms (Recalled from RN notes): Yes Resp Symptoms (Recalled from RN notes): No Skin Symptoms (Recalled from RN notes): No MS Symptoms (Recalled from RN notes): No Functional Status (Recalled from RN notes): WNL History of Present Illness Provider Complaint: Patient states that she started feeling bad on Monday States that she has been having sore throat, fever, chills, headache and pain and pressure in ears States that today she wasnt feeling any better so [facility] came in to get checked Related Data Home Medications Medication Instructions Recorded Confirmed norgestimate 0.25 mg-ethinyl 1 tab PO DAILY control 01/23/22 08/24/22 estradiol 35 mcg tablet (Estarylla) Previous Rx's Medication Instructions Recorded azithromycin 250 mg tablet See Rx Instructions PO .COMPLEX 5 08/24/22 (Zithromax Z-Cristian) days #6 tabs fluticasone propionate 50 1 - 2 spray intranasal DAILY #16 08/24/22 mcg/actuation nasal grams spray,suspension (Flonase Allergy Relief) methylprednisolone 4 mg tablets in See Rx Instructions .Route 08/24/22 a dose pack (Medrol (Cristian)) .COMPLEX 6 days #21 tabs Allergies Allergy/AdvReac Type Severity Reaction Status Date / Time penicillin G [PENICILLIN G] Allergy Mild Verified 04/16/22 11:49 Worker's Comp Is this a Worker's Comp case?: No [facility] Disclaimer: The information conta
[2022-08-24 16:48] VITALS: BP 116/80; PULSE 96; RESP 18; TEMP 37.3; O2SAT 99
== END 2022-08-24 16:50 | disposition home or self-care (01) ==
PROVIDERS: Emergency Provider Nurse Practitioner; PCP Nurse Practitioner Family
DX: H66.91 Otitis media, unspecified, right ear (principal); R50.9 Fever, unspecified; R51.9 Headache, unspecified; R07.0 Pain in throat; F41.9 Anxiety disorder, unspecified; F32.A Depression, unspecified
CPT/HCPCS: 87880; 99212; 99214; G0463

== ENCOUNTER 2022-12-05 18:07 | Emergency (ER) | payer BC, SELFPAY ==
[2022-12-05 18:35] VITALS: BP 116/74; PULSE 77; RESP 20; TEMP 36.9; O2SAT 100; BMI 44.9
[2022-12-05 18:52] VITALS: BP 116/74; PULSE 77; RESP 20; TEMP 36.9; O2SAT 100
[2022-12-05 19:02] LABS: UTC Strep Screen (Rapid) Negative (Negative)
[2022-12-05 19:03] LABS: UTC Influenza A Antigen Negative (Negative); UTC Influenza B Antigen Negative (Negative)
--- NOTE | 2022-12-05 19:20 | EXP.UTC ---
Discharge Plan Disposition Patient Disposition: Home, Self-Care Condition: Good Prescriptions Prescriptions: New pseudoephedrine HCl [Sudafed 12 Hour] 120 mg tablet extended release 120 mg PO Q12H PRN (Reason: nasal congestion) Qty: 20 0RF fluticasone propionate [Flonase Allergy Relief] 50 mcg/actuation spray,suspension 1 - 2 spray intranasal DAILY Qty: 16 0RF Rx Instructions: administer into each nostril daily No Action norgestimate-ethinyl estradiol [Estarylla] 0.25-35 mg-mcg tablet 1 tab PO DAILY Referrals Follow up/Referrals: Candace Jhaveri APRN [Primary Care Provider] - See instructions Activity Restrictions/Add. Instructions Additional Instructions/Restrictions: *Monitor Temp, Over the counter Motrin or Tylenol as directed/as needed Tylenol every 4 hours and Motrin every 6 hours (as long as your family doctor has told you that you can take it) for fever or pain. and straight to ER if unable to lower temp less than 101.0 after medication given *Warm salt water gargles may help to soothe the throat *Throat Lozenges? *Warm fluids like tea with honey may help to soothe the throat? *Sleep elevated *Humidifier/Vaporizer *Flonase 2 sprays in each nostril daily but be aware that it may take 2-3 days before you notice improvement Your throat swab was sent for culture. Those results are typically sent to your primary care. Be sure to follow up in 2-3 days with your family doctor/primary care physician if no improvement so they can review those result and treat if necessary. If you don?t have a primary care doctor, I recommend you get one but in the mean time, you will have to return to a walk in clinic Follow up IMMEDIATELY for new or worsening symptoms or no Noticeable improvement over the next 48-72 hours. 911 for difficulty breathing or swallowing Clinical Impressions Clinical Impression: Viral upper respiratory infection Instructions Patient Instructions: DI for Viral Upper Respiratory Infection -- Adult, DI for Nasal Congestion Discharge ED Provider: Mary Lozano [facility] [place] HPI General Stated complaint: chills,sore throat,cough,Congesion Mode of Arrival: Ambulatory Source of Information: Patient Limitations: No Limitations Time Seen by Provider: 12/05/22 19:20 Description of Symptoms (Recalled from Triage Doc. 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 States that she started feeling bad on Monday States that she has had some nasal congestion, cough, sore scratchy throat and body aches with chills States that today she was still not feeling well so she came in to get checked worried she may have flu or strep throat Related Data Home Medications Medication Instructions Recorded Confirmed norgestimate 0.25 mg-ethinyl 1 tab PO DAILY control 01/23/22 12/05/22 estradiol 35 mcg tablet (Estarylla) Previous Rx's Medication Instructions Recorded fluticasone propionate 50 1 - 2 spray intranasal DAILY #16 12/05/22 mcg/actuation nasal grams spray,suspension (Flonase Allergy Relief) pseudoephedrine HCl 120 mg 120 mg PO Q12H PRN nasal 12/05/22 tablet,extended release (Sudafed congestion #20 tabs 12 Hour) Allergies Allergy/AdvReac Type Severity Reaction Status Date / Time penicillin G [PENICILLIN G] Allergy Mild Verified 04/16/22 11:49 Worker's Comp Is this a Worker's Comp case?: No [facility] Disclaimer: The information contained in this section may have been updated after the patient was seen, as this i
== END 2022-12-05 19:40 | disposition home or self-care (01) ==
PROVIDERS: Emergency Provider Nurse Practitioner; PCP Nurse Practitioner Family
DX: J06.9 Acute upper respiratory infection, unspecified (principal); B34.9 Viral infection, unspecified; R05.9 Cough, unspecified; F41.9 Anxiety disorder, unspecified; F32.A Depression, unspecified
CPT/HCPCS: 87804; 87880; 99212; 99214; G0463

== ENCOUNTER 2023-01-17 18:42 | Emergency (ER) | payer BC, SELFPAY ==
[2023-01-17 19:45] VITALS: BP 131/88; PULSE 87; RESP 19; TEMP 37; O2SAT 98; BMI 45.1
--- NOTE | 2023-01-17 19:58 | EXP.UTC ---
Discharge Plan Disposition Patient Disposition: Home, Self-Care Condition: Good Prescriptions Prescriptions: No Action norgestimate-ethinyl estradiol [Estarylla] 0.25-35 mg-mcg tablet 1 tab PO DAILY Referrals Follow up/Referrals: Candace Jhaveri APRN [Primary Care Provider] - See instructions Activity Restrictions/Add. Instructions Additional Instructions/Restrictions: *Monitor Temp, Over the counter Motrin or Tylenol as directed/as needed Tylenol every 4 hours and Motrin every 6 hours (as long as your family doctor has told you that you can take it) for fever or pain. and straight to ER if unable to lower temp less than 101.0 after medication given *Warm salt water gargles may help to soothe the throat *Throat Lozenges? *Warm fluids like tea with honey may help to soothe the throat? *Sleep elevated *Humidifier/Vaporizer *Flonase 2 sprays in each nostril daily but be aware that it may take 2-3 days before you notice improvement Your throat swab was sent for culture. Those results are typically sent to your primary care. Be sure to follow up in 2-3 days with your family doctor/primary care physician if no improvement so they can review those result and treat if necessary. If you don?t have a primary care doctor, I recommend you get one but in the mean time, you will have to return to a walk in clinic Follow up IMMEDIATELY for new or worsening symptoms or no Noticeable improvement over the next 48-72 hours. 911 for difficulty breathing or swallowing You were tested for today for Upper Respiratory Panel with COVID19 your test result should be back in the next 24 hours you may check your results on the [facility] My Health Portal if your COVID test is positive you must Quarantine for 5 days Clinical Impressions Clinical Impression: Viral syndrome Instructions Patient Instructions: Sore Throat, DI for Viral Syndrome Discharge ED Provider: Mary Lozano [facility] [place] HPI General Stated complaint: st, congestion, runny nose, cough Mode of Arrival: Ambulatory Source of Information: Patient Limitations: No Limitations Time Seen by Provider: 01/17/23 20:04 Description of Symptoms (Recalled from Triage Doc. 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 States that yesterday she started with sore throat, cough, headache, feeling SOA at times and over all not feeling well States that today she was still not feeling well so she came in to get checked Related Data Home Medications Medication Instructions Recorded Confirmed norgestimate 0.25 mg-ethinyl 1 tab PO DAILY control 01/23/22 01/17/23 estradiol 35 mcg tablet (Estarylla) Allergies Allergy/AdvReac Type Severity Reaction Status Date / Time penicillin G [PENICILLIN G] Allergy Mild Verified 04/16/22 11:49 Worker's Comp Is this a Worker's Comp case?: No [facility] Disclaimer: The information contained in this section may have been updated after the patient was seen, as this information can be updated by other users. 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
[2023-01-17 20:08] VITALS: BP 131/88; PULSE 87; RESP 19; TEMP 37; O2SAT 98
[2023-01-17 20:08] LABS: UTC Strep Screen (Rapid) Negative (Negative)
[2023-01-17 20:22] LABS: Adenovirus,PCR Not Detected (NotDetected); Coronavirus 19, PCR Not Detected (NotDetected); Coronavirus 229E Not Detected (NotDetected); Coronavirus NL63 Not Detected (NotDetected); Coronovirus HKU1,PCR Not Detected (NotDetected); Human Metapneumovirus Not Detected (NotDetected); Influenza A, PCR Not Detected (NotDetected); Influenza AH1, 2009 Not Detected (NotDetected); Influenza AH1, PCR Not Detected (NotDetected); Influenza AH3,PCR Not Detected (NotDetected); Influenza B, PCR Not Detected (NotDetected); Parainfluenza 1, PCR Not Detected (NotDetected); Parainfluenza 2, PCR Not Detected (NotDetected); Parainfluenza 3, PCR Not Detected (NotDetected); Parainfluenza 4, PCR Not Detected (NotDetected); Respiratory Syncytial Virus Not Detected (NotDetected); Rhinovirus/Enterovirus Not Detected (NotDetected)
[2023-01-18 03:31] LABS: Coronavirus OC43 Detected (NotDetected)
== END 2023-01-17 20:17 | disposition home or self-care (01) ==
PROVIDERS: Emergency Provider Nurse Practitioner; PCP Nurse Practitioner Family
DX: R07.0 Pain in throat (principal); B34.2 Coronavirus infection, unspecified; R09.81 Nasal congestion; R05.9 Cough, unspecified; R51.9 Headache, unspecified
CPT/HCPCS: 87581; 87632; 87635; 87798; 87880; 99212; 99213; G0463

== ENCOUNTER 2023-02-15 15:04 | Emergency (ER) | payer BC, SELFPAY ==
[2023-02-15 15:30] VITALS: BP 141/90; PULSE 86; RESP 18; TEMP 36.7; O2SAT 98; BMI 46.0
[2023-02-15 15:46] LABS: UTC Influenza A Antigen Negative (Negative); UTC Influenza B Antigen Negative (Negative); UTC Strep Screen (Rapid) Negative (Negative)
--- NOTE | 2023-02-15 16:00 | EXP.UTC ---
Discharge Plan Disposition Patient Disposition: Home, Self-Care Condition: Good Prescriptions Prescriptions: New azithromycin [Zithromax] 250 mg tablet 250 mg PO UD DOSE PK Qty: 6 0RF Rx Instructions: Take two (2) tablets today, then one (1) tablet days #2 thru #5 [id number]-[id number] [Bromfed DM] 2-30-10 mg/5 mL Syrup 5 ml PO Q6H PRN (Reason: Cough) Qty: 240 0RF ondansetron 4 mg Tablet,Disintegrating 4 mg PO Q8H PRN (Reason: Nausea) Qty: 8 0RF No Action norgestimate-ethinyl estradiol [Estarylla] 0.25-35 mg-mcg tablet 1 tab PO DAILY Referrals Follow up/Referrals: Candace Jhaveri APRN [Primary Care Provider] - See instructions Activity Restrictions/Add. Instructions Additional Instructions/Restrictions: Drink plenty of fluids. Take tylenol or ibuprofen for pain or fever. Take the medications as directed. Follow up with your regular doctor. GO TO THE ER FOR ANY WORSENING SYMPTOMS Clinical Impressions Clinical Impression: Acute viral syndrome, Pharyngitis Stand Alone Forms Stand Alone Forms: Work/School Release Instructions Patient Instructions: DI for Viral Syndrome Discharge ED Provider: Thanh Crawford [facility] General Stated complaint: congestion, sore throat, weakness Mode of Arrival: Ambulatory Source of Information: Patient Limitations: No Limitations Time Seen by Provider: 02/15/23 16:00 Description of Symptoms (Recalled from Triage Doc. by RN): ARIZA, congestion, sore throat, itchy ears, and fatigued HEENT Symptoms (Recalled from RN notes): Yes Resp Symptoms (Recalled from RN notes): No Skin Symptoms (Recalled from RN notes): No MS Symptoms (Recalled from RN notes): No Functional Status (Recalled from RN notes): n/a History of Present Illness Provider Complaint: She states that for the past 3 days she has had worsening chills, body aches, fatigue, and congestion. She denies shortness of breath. Related Data Home Medications Medication Instructions Recorded Confirmed norgestimate 0.25 mg-ethinyl 1 tab PO DAILY control 01/23/22 02/15/23 estradiol 35 mcg tablet (Estarylla) Previous Rx's Medication Instructions Recorded azithromycin 250 mg tablet 250 mg PO UD DOSE PK #6 tabs 02/15/23 (Zithromax) [id number]-zggpounwnulwrfs-EC 5 ml PO Q6H PRN Cough #240 mL 02/15/23 2 mg-30 mg-10 mg/5 mL oral syrup (Bromfed DM) ondansetron 4 mg disintegrating 4 mg PO Q8H PRN Nausea #8 tabs 02/15/23 tablet Allergies Allergy/AdvReac Type Severity Reaction Status Date / Time penicillin G [PENICILLIN G] Allergy Mild Verified 02/15/23 15:53 Worker's Comp Is this a Worker's Comp case?: No [facility] Disclaimer: The information contained in this section may have been updated after the patient was seen, as this information can be updated by other users. 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) History of right knee surgery History of tonsillectomy History of wisdom tooth extraction Social History Smoking Status: Never smoker alcohol intake: never substance use type: denies use current occupational status: other Travel in the last 8 weeks: None household members: significant other and children housing: house ROS Obtained: Yes All systems reviewed & no additional complaints except as documented Constitutional Constitutional: Reports chills and Reports fever(s) Eyes Eyes: Denies eye discharge ENT Ears, Nose, Mouth, and Throat: Reports as per HPI Cardiovascular Cardiovascular: Denies chest pain Respiratory Respiratory: Denies chest congestion and Reports cough Gastrointestinal Gastrointestingal: Reports nausea; Denies abdominal pain, constipation, cramping, diarrhea or vomiting Musculoskeletal Musculoskeletal: Denies a
[2023-02-15 16:30] VITALS: BP 141/90; PULSE 86; RESP 18; TEMP 36.7; O2SAT 98
== END 2023-02-15 16:30 | disposition home or self-care (01) ==
PROVIDERS: Emergency Provider Nurse Practitioner Family; PCP Nurse Practitioner Family
DX: J02.9 Acute pharyngitis, unspecified (principal); R51.9 Headache, unspecified; R09.81 Nasal congestion; R11.0 Nausea; R68.83 Chills (without fever); R53.83 Other fatigue; M79.18 Myalgia, other site; B34.9 Viral infection, unspecified
CPT/HCPCS: 87635; 87804; 87880; 99212; 99214; G0463

== ENCOUNTER 2023-03-16 08:12 | Emergency (ER) | payer BC, SELFPAY ==
[2023-03-16 08:20] VITALS: BP 127/85; PULSE 118; RESP 18; TEMP 36.9; O2SAT 98; BMI 42.7
[2023-03-16 08:45] LABS: UTC Influenza A Antigen Negative (Negative); UTC Influenza B Antigen Negative (Negative); UTC Strep Screen (Rapid) Positive (Negative)
--- NOTE | 2023-03-16 08:52 | EXP.UTC ---
Discharge Plan Disposition Patient Disposition: Home, Self-Care Condition: Good Prescriptions Prescriptions: New azithromycin [Zithromax] 250 mg tablet 250 mg PO UD DOSE PK Qty: 6 0RF Rx Instructions: Take two (2) tablets today, then one (1) tablet days #2 thru #5 [id number]-ygrdluqca-AU [Bromfed DM] 2-30-10 mg/5 mL Syrup 5 ml PO Q6H PRN (Reason: Cough) Qty: 240 0RF methylprednisolone 4 mg Tablets,Dose Pack 4 mg PO DIRECTED 6 Days Qty: 21 0RF Rx Instructions: Take 1 pack as directed for 6 days No Action norgestimate-ethinyl estradiol [Estarylla] 0.25-35 mg-mcg tablet 1 tab PO DAILY Referrals Follow up/Referrals: Candace Jhaveri APRN [Primary Care Provider] - See instructions Activity Restrictions/Add. Instructions Additional Instructions/Restrictions: Drink plenty of fluids. Take tylenol or ibuprofen for pain or fever. Take the medications as directed. Follow up with your regular doctor. GO TO THE ER FOR ANY WORSENING SYMPTOMS Clinical Impressions Clinical Impression: Strep throat Stand Alone Forms Stand Alone Forms: Work/School Release Instructions Patient Instructions: DI for Strep Throat Discharge ED Provider: Thanh Crawford [facility] General Stated complaint: SORE THROAT CONGESTION Mode of Arrival: Ambulatory Source of Information: Patient Limitations: No Limitations Time Seen by Provider: 03/16/23 08:52 Description of Symptoms (Recalled from Triage Doc. by RN): Pt's symptoms are sore throat, congestion, and fatigue. HEENT Symptoms (Recalled from RN notes): Yes Resp Symptoms (Recalled from RN notes): No Skin Symptoms (Recalled from RN notes): No MS Symptoms (Recalled from RN notes): No Functional Status (Recalled from RN notes): n/a History of Present Illness Provider Complaint: She states that for past 2 days she has had sore throat, chills, and malaise. Related Data Home Medications Medication Instructions Recorded Confirmed norgestimate 0.25 mg-ethinyl 1 tab PO DAILY control 01/23/22 03/16/23 estradiol 35 mcg tablet (Estarylla) Previous Rx's Medication Instructions Recorded azithromycin 250 mg tablet 250 mg PO UD DOSE PK #6 tabs 03/16/23 (Zithromax) [id number]-yuznqllxhwzeyfy-TF 5 ml PO Q6H PRN Cough #240 mL 03/16/23 2 mg-30 mg-10 mg/5 mL oral syrup (Bromfed DM) methylprednisolone 4 mg tablets in 4 mg PO DIRECTED 6 days #21 tabs 03/16/23 a dose pack Allergies Allergy/AdvReac Type Severity Reaction Status Date / Time penicillin G [PENICILLIN G] Allergy Mild Verified 03/16/23 08:32 Worker's Comp Is this a Worker's Comp case?: No [facility] Disclaimer: The information contained in this section may have been updated after the patient was seen, as this information can be updated by other users. 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 (Reviewed 02/06/22 @ 11:07 by Russell Fortune ([facility]), PROFESSOR OF PRACTICE) Anemia Anxiety Depression Surgical History (Reviewed 02/06/22 @ 11:07 by Russell Fortune ([facility]), PROFESSOR OF PRACTICE) History of right knee surgery History of tonsillectomy History of wisdom tooth extraction Social History Smoking Status: Never smoker alcohol intake: never substance use type: denies use current occupational status: other Travel in the last 8 weeks: None household members: significant other and children housing: house ROS Obtained: Yes All systems reviewed & no additional complaints except as documented Constitutional Constitutional: Reports chills and Reports fever(s) Eyes Eyes: Denies eye discharge ENT Ears, Nose, Mouth, and Throat: Reports as per HPI Cardiovascular Cardiovascular: Denies chest pain Respiratory Respiratory: Denies chest congestion and Reports cough Gastrointestinal Gastrointestingal: Reports nausea; Denies abdominal pain, constipation, cramping, diarrhea or vomiting Musculoskeletal Musculoskeletal: Denies arthralgias Integumentary/Breasts Skin/Breast: Denies rash Neurologic Neurologic: Denies paresthesias Physical Exam General General appearance: alert and in no apparent distress Head Head exam: atraumatic, normocephalic and normal inspection Eye Eye exam: Present normal appearance, PERRL and EOMI ENT ENT exam: Present mucous membranes moist and normal external ear exam Expanded ENT Exam TM/Canal exam: Bilateral TM: erythema and bulging Nose exam: Absent sinus tenderness Mouth exam: Present normal external inspection; Absent drooling Teeth exam: Present normal inspection Throat exam: Present tonsillar erythema, tonsillomegaly and tonsillar exudate Neck Neck exam: Present normal inspection, full ROM and trachea midline; Absent tenderness, meningismus or lymphadenopathy Chest Chest inspection: Present normal inspection and symmetric chest wall rise; Absent tenderness Respiratory Respiratory exam: Present normal lung sounds bilaterally; Absent respiratory distress, wheezes, stridor or accessory muscle use Cardiovascular Cardiovascular exam: Present regular rate and normal rhythm; Absent systolic murmur or diastolic murmur Abdominal Exam Abdominal exam: Present soft and normal bowel sounds; Absent distention, tenderness, guarding, rebound or rigidity Extremities Exam Extremities exam: Present normal inspection and normal capillary refill; Absent calf tenderness Back Exam Back exam: Present normal inspection and full ROM; Absent tenderness, CVA tenderness (R) or CVA tenderness (L) Neurological Exam Neurological exam: Present alert, oriented X3 and CN II-XII intact Psychiatric Psychiatric exam: Present normal affect and normal mood Skin Skin exam: Present warm, dry, intact and normal color Medical Decision Making Medical Records Medical records reviewed: No I reviewed the patient's medical records. Jone Inquiry Pt receiving controlled substance: No Vital Signs: 03/16/23 08:20 Temperature 98.5 F Temperature Source Oral Pulse Rate [Right Radial] 118 H Respiratory Rate 18 Blood Pressure [Right Arm] 127/85 Blood Pressure Mean [Right Arm] 99 Blood Pressure Source [Right Arm] Automatic Cuff Blood Pressure Position [Right Arm] Sitting 02 Sat by Pulse Oximetry 98 Oxygen Delivery Method Room Air Lab Data Lab results reviewed: Yes I reviewed the patient's lab results. Lab Results 03/16/23 08:30: Influenza Type A Ag Negative, Influenza Type B Ag Negative, Strep Scn Rapid Clinic Positive A
[2023-03-16 09:23] VITALS: BP 127/85; PULSE 118; RESP 18; TEMP 36.9; O2SAT 98
== END 2023-03-16 09:23 | disposition home or self-care (01) ==
PROVIDERS: Emergency Provider Nurse Practitioner Family; PCP Nurse Practitioner Family
DX: J02.0 Streptococcal pharyngitis (principal); R07.0 Pain in throat; R50.9 Fever, unspecified; R09.81 Nasal congestion; R53.81 Other malaise
CPT/HCPCS: 87804; 87880; 99212; 99214; G0463

== ENCOUNTER 2023-05-03 18:16 | Emergency (ER) | payer BC, SELFPAY ==
[2023-05-03 19:15] VITALS: BP 115/82; PULSE 74; RESP 20; TEMP 36.6; O2SAT 98; BMI 44.6
--- NOTE | 2023-05-03 19:48 | EXP.UTC ---
Discharge Plan Disposition Patient Disposition: Home, Self-Care Condition: Good Prescriptions Prescriptions: New azithromycin [Zithromax Z-Cristian] 250 mg tablet See Rx Instructions .ROUTE .COMPLEX 5 Days Qty: 6 0RF Rx Instructions: For 250 mg dose pack: take 500 mg today (day 1), then 250 mg for 4 days (days 2-5) No Action norgestimate-ethinyl estradiol [Estarylla] 0.25-35 mg-mcg tablet 1 tab PO DAILY Referrals Follow up/Referrals: Candace Jhaveri APRN [Primary Care Provider] - See instructions Activity Restrictions/Add. Instructions Additional Instructions/Restrictions: *Monitor Temp, Over the counter Motrin or Tylenol as directed/as needed Tylenol every 4 hours and Motrin every 6 hours (as long as your family doctor has told you that you can take it) for fever or pain. and straight to ER if unable to lower temp less than 101.0 after medication given *Warm salt water gargles may help to soothe the throat *Throat Lozenges? *Warm fluids like tea with honey may help to soothe the throat? *Sleep elevated *Humidifier/Vaporizer Your throat swab was sent for culture. Those results are typically sent to your primary care. Be sure to follow up in 2-3 days with your family doctor/primary care physician if no improvement so they can review those result and treat if necessary. If you don?t have a primary care doctor, I recommend you get one but in the mean time, you will have to return to a walk in clinic Follow up IMMEDIATELY for new or worsening symptoms or no Noticeable improvement over the next 48-72 hours. 911 for difficulty breathing or swallowing Clinical Impressions Clinical Impression: Pharyngitis Instructions Patient Instructions: Sore Throat, Azithromycin Discharge ED Provider: Mary Lozano [facility] General Stated complaint: sore throat,congestion Mode of Arrival: Ambulatory Source of Information: Patient Limitations: No Limitations Time Seen by Provider: 05/03/23 19:48 Description of Symptoms (Recalled from Triage Doc. by RN): PATIENT C/O SORE THROAT HEENT Symptoms (Recalled from RN notes): Yes Resp Symptoms (Recalled from RN notes): No Skin Symptoms (Recalled from RN notes): No MS Symptoms (Recalled from RN notes): No Functional Status (Recalled from RN notes): WNL History of Present Illness Provider Complaint: Patient states that both her boys has strep throat and she has been caring for them and this morning she woke up with sore throat and it has continued to get worse throughout the day so she came in Related Data Home Medications Medication Instructions Recorded Confirmed norgestimate 0.25 mg-ethinyl 1 tab PO DAILY control 01/23/22 05/03/23 estradiol 35 mcg tablet (Estarylla) Previous Rx's Medication Instructions Recorded azithromycin 250 mg tablet See Rx Instructions PO .COMPLEX 5 05/03/23 (Zithromax Z-Cristian) days #6 tabs Allergies Allergy/AdvReac Type Severity Reaction Status Date / Time penicillin G [PENICILLIN G] Allergy Mild Verified 03/16/23 08:32 Worker's Comp Is this a Worker's Comp case?: No [facility] Disclaimer: The information contained in this section may have been updated after the patient was seen, as this information can be updated by other users. 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) History of right knee surgery History of tonsillectomy History of wisdom tooth extraction Social History Smoking Status: Never smoker alcohol intake: never substance use type: denies use current occupational status: other Travel in the last 8 weeks: None household members: significant other and children housing: house ROS Obtained: Yes All systems reviewed & no additional complaints except as documented and Yes Systems reviewed as appropriate & no additional complaints except as documented Constitutional Constitutional: Reports system reviewed and no additional complaints, except as documented and Reports as per HPI ENT Ears, Nose, Mouth, and Throat: Reports system reviewed and no additional complaints, except as documented, Reports as per HPI and Reports sore throat Cardiovascular Cardiovascular: Reports system reviewed and no additional complaints, except as documented and Reports as per HPI Respiratory Respiratory: Reports system reviewed and no additional complaints, except as documented and Reports as per HPI Gastrointestinal Gastrointestingal: Reports system reviewed and no additional complaints, except as documented and as per HPI Physical Exam General General appearance: alert and in no apparent distress ENT ENT exam: Present mucous membranes moist Expanded ENT Exam Throat exam: Present other (pharyngeal erythema noted) Respiratory Respiratory exam: Present normal lung sounds bilaterally; Absent respiratory distress or wheezes Cardiovascular Cardiovascular exam: Present regular rate, normal rhythm and normal heart sounds Neurological Exam Neurological exam: Present alert, oriented X3 and normal gait Medical Decision Making Jone Inquiry Pt receiving controlled substance: No Jone was queried for this patient: No Vital Signs: 05/03/23 19:15 Temperature 97.9 F Temperature Source Oral Pulse Rate [Left Brachial] 74 Respiratory Rate 20 Blood Pressure [Left Arm] 115/82 Blood Pressure Mean [Left Arm] 93 Blood Pressure Source [Left Arm] Automatic Cuff Blood Pressure Position [Left Arm] Sitting 02 Sat by Pulse Oximetry 98 Oxygen Delivery Method Room Air Lab Data Lab results reviewed: Yes I reviewed the patient's lab results. Medical Decision Narrative: Patient states that she has taken azithromycin in the past without complications or reactions
[2023-05-03 19:52] VITALS: BP 115/82; PULSE 74; RESP 20; TEMP 36.6; O2SAT 98
[2023-05-03 20:15] LABS: UTC Strep Screen (Rapid) Negative (Negative)
== END 2023-05-03 20:07 | disposition home or self-care (01) ==
PROVIDERS: Emergency Provider Nurse Practitioner; PCP Nurse Practitioner Family
DX: J02.9 Acute pharyngitis, unspecified (principal); Z20.818 Contact with and (suspected) exposure to other bacterial communicable diseases
CPT/HCPCS: 87880; 99212; 99214; G0463

== ENCOUNTER 2023-08-06 19:07 | Emergency (ER) | payer BC, SELFPAY ==
[2023-08-06 19:20] VITALS: BP 126/77; PULSE 82; RESP 18; TEMP 36.9; O2SAT 97; BMI 44.9
[2023-08-06 19:39] LABS: UTC Strep Screen (Rapid) Negative (Negative)
--- NOTE | 2023-08-06 19:41 | ED_ITS ---
Discharge Plan Disposition Patient Disposition: Home, Self-Care Condition: Good Prescriptions Prescriptions: No Action norgestimate-ethinyl estradiol [Estarylla] 0.25-35 mg-mcg tablet 1 tab PO DAILY azithromycin [Zithromax Z-Cristian] 250 mg tablet See Rx Instructions .ROUTE .COMPLEX 5 Days Qty: 6 0RF Rx Instructions: For 250 mg dose pack: take 500 mg today (day 1), then 250 mg for 4 days (days 2-5) Referrals Follow up/Referrals: Candace Jhavrei APRN [Primary Care Provider] - See instructions Activity Restrictions/Add. Instructions Additional Instructions/Restrictions: No sign of a bacterial infection. Likely viral. Viruses can take 7-14 days to run their course. Nasal saline and bulb syringe or nose Isabella to remove nasal drainage to help with nasal congestion. Hard to eat, drink, sleep with nasal congestion so important to keep this cleaned out. Monitor temp. Tylenol or Motrin as needed for pain or fever Encourage fluids, water, Gatorade, Powerade, Pedialyte if /toddler/child Warm salt water gargles Warm fluids Sore throat lozenges Sleep elevated Humidifier/vaporizer Follow-up immediately for new or worsening symptoms or no noticeable improvement over the next 48-72 hours. Clinical Impressions Clinical Impression: URI (upper respiratory infection) Instructions Patient Instructions: DI for Viral Upper Respiratory Infection -- Adult Discharge ED Provider: Tong ([facility])Russell [facility] [place] HPI General Stated complaint: Sore throat,congestion,bilateral ear pain,cough Mode of Arrival: Ambulatory Source of Information: Patient Limitations: No Limitations Time Seen by Provider: 08/06/23 19:41 Description of Symptoms (Recalled from Triage Doc. by RN): PATIENT C/O SORE THROAT, CONGESTION, DRAINAGE, LEFT EAR PAIN, COUGH AND SNEEZING X 1 WEEK HEENT Symptoms (Recalled from RN notes): Yes Resp Symptoms (Recalled from RN notes): Yes Skin Symptoms (Recalled from RN notes): No MS Symptoms (Recalled from RN notes): No Functional Status (Recalled from RN notes): WNL History of Present Illness Provider Complaint: 28 YR OLD FEMALE PRESNETS FOR C/O SORE THROAT, CONGESTION, DRAINAGE, LEFT EAR PAIN, COUGH AND SNEEZING X 1 WEEK Related Data Home Medications Medication Instructions Recorded Confirmed norgestimate 0.25 mg-ethinyl 1 tab PO DAILY control 01/23/22 05/03/23 estradiol 35 mcg tablet (Estarylla) Previous Rx's Medication Instructions Recorded azithromycin 250 mg tablet See Rx Instructions PO .COMPLEX 5 05/03/23 (Zithromax Z-Cristian) days #6 tabs Allergies Allergy/AdvReac Type Severity Reaction Status Date / Time penicillin G [PENICILLIN G] Allergy Mild Verified 03/16/23 08:32 Worker's Comp Is this a Worker's Comp case?: No [facility] Disclaimer: The information contained in this section may have been updated after the patient was seen, as this information can be updated by other users. 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) Smoking Status: Never smoker alcohol intake: never substance use type: denies use current occupational status: other Travel in the last 8 weeks: None household members: significant other and children housing: house ROS Obtained: Yes All systems reviewed & no additional complaints except as documented Constitutional Constitutional: Reports system reviewed and no additional complaints, except as documented and Reports as per HPI Eyes Eyes: Reports system reviewed and no additional complaints, except as documented ENT Ears, Nose, Mouth, and Throat: Reports system reviewed and no additional complaints, except as documented, Reports as per HPI, Reports otalgia, Reports nasal congestion, Reports nasal discharge, Reports post nasal drip and Reports sore throat Cardiovascular Cardiovascular: Reports system reviewed and no additional complaints, except as documented Respiratory Respiratory: Reports system reviewed and no additional complaints, except as documented Gastrointestinal Gastrointestingal: Reports system reviewed and no additional complaints, except as documented Musculoskeletal Musculoskeletal: Reports system reviewed and no additional complaints, except as documented Integumentary/Breasts Skin/Breast: Reports system reviewed and no additional complaints, except as documented Neurologic Neurologic: Reports system reviewed and no additional complaints, except as documented Endocrine Endocrine: Reports system reviewed and no additional complaints, except as documented Hematologic/Lymphatic Henatologic/Lymphatic: Reports system reviewed and no additional complaints, except as documented Allergic/Immunologic Allergic/Immunologic: Reports system reviewed and no additional complaints, except as documented Physical Exam General General appearance: alert and in no apparent distress Eye Eye exam: Present normal appearance and PERRL ENT ENT exam: Present normal exam, normal oropharynx, mucous membranes moist and TM's normal bilaterally Respiratory Respiratory exam: Present normal lung sounds bilaterally Cardiovascular Cardiovascular exam: Present regular rate and normal rhythm Neurological Exam Neurological exam: Present alert and oriented X3 Lymphatic Lymphatic Findings: no adenopathy Medical Decision Making Medical Records Medical records reviewed: Yes I reviewed the patient's medical records. Jone Inquiry Pt receiving controlled substance: No Jone was queried for this patient: No Vital Signs: 08/06/23 19:20 Temperature 98.5 F Temperature Source Oral Pulse Rate [Left Brachial] 82 Respiratory Rate 18 Blood Pressure [Left Arm] 126/77 Blood Pressure Mean [Left Arm] 93 Blood Pressure Source [Left Arm] Automatic Cuff Blood Pressure Position [Left Arm] Sitting 02 Sat by Pulse Oximetry 97 Oxygen Delivery Method Room Air Lab Data Lab results reviewed: Yes I reviewed the patient's lab results. Lab Results 08/06/23 19:36: Strep Scn Rapid Clinic Negative Orders (Tests/Meds): ORDERS Category Date Time Status Strep Screen Confirmation Stat Micro 08/06/23 19:36 Received
[2023-08-06 19:45] VITALS: BP 126/77; PULSE 82; RESP 18; TEMP 36.9; O2SAT 97
[2023-08-06 20:00] LABS: Adenovirus,PCR Not Detected (NotDetected); Bordetella Pertussis Not Detected (NotDetected); Chlamydophila Pneumoniae, PCR Not Detected (NotDetected); Coronavirus 19, PCR Not Detected (NotDetected); Coronavirus 229E Not Detected (NotDetected); Coronavirus NL63 Not Detected (NotDetected); Coronavirus OC43 Not Detected (NotDetected); Coronovirus HKU1,PCR Not Detected (NotDetected); Human Metapneumovirus Not Detected (NotDetected); Influenza A, PCR Not Detected (NotDetected); Influenza AH1, 2009 Not Detected (NotDetected); Influenza AH1, PCR Not Detected (NotDetected); Influenza AH3,PCR Not Detected (NotDetected); Influenza B, PCR Not Detected (NotDetected); Mycoplasma Pneumoniae, PCR Not Detected (NotDetected); Parainfluenza 1, PCR Not Detected (NotDetected); Parainfluenza 2, PCR Not Detected (NotDetected); Parainfluenza 3, PCR Not Detected (NotDetected); Parainfluenza 4, PCR Not Detected (NotDetected); Respiratory Syncytial Virus Not Detected (NotDetected); Rhinovirus/Enterovirus Not Detected (NotDetected)
== END 2023-08-06 19:54 | disposition home or self-care (01) ==
PROVIDERS: Emergency Provider Nurse Practitioner Family; PCP Nurse Practitioner Family
DX: R05.9 Cough, unspecified (principal); R07.0 Pain in throat; H92.02 Otalgia, left ear; J06.9 Acute upper respiratory infection, unspecified; B34.9 Viral infection, unspecified
CPT/HCPCS: 87581; 87632; 87635; 87798; 87880; 99212; 99213; G0463

== ENCOUNTER 2023-09-26 09:55 | Emergency (ER) | payer BC, SELFPAY ==
[2023-09-26 10:05] VITALS: BP 134/80; PULSE 86; RESP 19; TEMP 36.6; O2SAT 97; BMI 44.9
[2023-09-26 10:15] LABS: Influenza A, PCR Not Detected (NotDetected); Influenza B, PCR Not Detected (NotDetected)
--- NOTE | 2023-09-26 10:38 | EXP.UTC ---
Discharge Plan Disposition Patient Disposition: Home, Self-Care Condition: Good Prescriptions Prescriptions: New pseudoephedrine HCl [Sudogest 12-hour] 120 mg tablet extended release 120 mg PO Q12H PRN (Reason: nasal congestion) Qty: 20 0RF guaifenesin [Mucinex] 600 mg tablet extended release 12hr 1,200 mg PO BID PRN (Reason: cough) Qty: 20 0RF azithromycin [Zithromax Z-Cristian] 250 mg tablet See Rx Instructions .ROUTE .COMPLEX 5 Days Qty: 6 0RF Rx Instructions: For 250 mg dose pack: take 500 mg today (day 1), then 250 mg for 4 days (days 2-5) No Action norgestimate-ethinyl estradiol [Estarylla] 0.25-35 mg-mcg tablet 1 tab PO DAILY Referrals Follow up/Referrals: Candace Jhaveri APRN [Primary Care Provider] - See instructions Activity Restrictions/Add. Instructions Additional Instructions/Restrictions: *Monitor Temp, Over the counter Motrin or Tylenol as directed/as needed Tylenol every 4 hours and Motrin every 6 hours (as long as your family doctor has told you that you can take it) for fever or pain. and straight to ER if unable to lower temp less than 101.0 after medication given *Warm salt water gargles may help to soothe the throat *Throat Lozenges? *Warm fluids like tea with honey may help to soothe the throat?and help with nasal congestion? *Sleep elevated *Humidifier/Vaporizer Follow up IMMEDIATELY for new or worsening symptoms or no Noticeable improvement over the next 48-72 hours. 911 for difficulty breathing or swallowing You were tested for today for COVID19 your test result should be back in the next few ?hours, you may check your results on the [facility] Clinical Impressions Clinical Impression: Sinusitis Qualifiers: Sinusitis location: unspecified location Chronicity: unspecified Qualified Code(s): J32.9 - Chronic sinusitis, unspecified Stand Alone Forms Stand Alone Forms: Work/School Release Instructions Patient Instructions: Sinusitis, DI for Sinusitis Print Language Print Language: Luxembour[place] Discharge ED Provider: Mary Lozano [facility] [place] HPI General Stated complaint: runny nose, soa, chills, headache Mode of Arrival: Ambulatory Source of Information: Patient Limitations: No Limitations Time Seen by Provider: 09/26/23 10:38 Description of Symptoms (Recalled from Triage Doc. by RN): PATIENT C/O COUGH WITH MUCOUS, CONGESTION, SNEEZING, SOA, RUNNY NOSE, AND CHILLS X 3 DAYS HEENT Symptoms (Recalled from RN notes): Yes Resp Symptoms (Recalled from RN notes): Yes Skin Symptoms (Recalled from RN notes): No MS Symptoms (Recalled from RN notes): No Functional Status (Recalled from RN notes): WNL History of Present Illness Provider Complaint: Patient states that she hasnt been feeling well for several days States that she has been having sinus congestion and pressure, sneezing cough, at times feeling like she cannot breath well and headache States today she was not feeling any better so she came in to get checked Related Data Home Medications ?Medication ?Instructions ?Recorded ?Confirmed norgestimate 0.25 mg-ethinyl 1 tab PO DAILY control 01/23/22 09/26/23 estradiol 35 mcg tablet (Estarylla) Previous Rx's ?Medication ?Instructions ?Recorded azithromycin 250 mg tablet See Rx Instructions PO .COMPLEX 5 09/26/23 (Zithromax Z-Cristian) days #6 tabs guaifenesin 600 mg tablet, 1,200 mg (2 x 600 mg) PO BID PRN 09/26/23 extended release 12 hr (Mucinex) cough #20 tabs pseudoephedrine HCl 120 mg 120 mg PO Q12H PRN nasal 09/26/23 tablet,extended release (Sudogest congestion #20 tabs 12-hour) Allergies Allergy/AdvReac Type Severity Reaction Status Date / Time penicillin G [PENICILLIN G] Allergy Mild Verified 03/16/23 08:32 Worker's Comp Is this a Worker's Comp case?: No [facility] Disclaimer: The information contained in this section may have been updated after the patient was seen, as this information can be updated by other users. 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) History of tonsillectomy History of wisdom tooth extraction History of right knee surgery Social History , JLUIS) Smoking Status: Never smoker alcohol intake: never substance use type: denies use current occupational status: other Travel in the last 8 weeks: None household members: significant other and children housing: house ROS Obtained: Yes All systems reviewed & no additional complaints except as documented and Yes Systems reviewed as appropriate & no additional complaints except as documented Constitutional Constitutional: Reports system reviewed and no additional complaints, except as documented, Reports as per HPI and Reports headache(s) ENT Ears, Nose, Mouth, and Throat: Reports system reviewed and no additional complaints, except as documented, Reports as per HPI, Reports otalgia, Reports headache(s), Reports sinus pain, Reports sinus pressure and Reports sore throat Cardiovascular Cardiovascular: Reports system reviewed and no additional complaints, except as documented and Reports as per HPI Respiratory Respiratory: Reports system reviewed and no additional complaints, except as documented, Reports as per HPI and Reports cough Gastrointestinal Gastrointestingal: Reports system reviewed and no additional complaints, except as documented and as per HPI Neurologic Neurologic: Reports headache(s) Physical Exam General General appearance: alert and in no apparent distress ENT ENT exam: Present mucous membranes moist Expanded ENT Exam Nose exam: Present sinus tenderness Throat exam: Present other (Pharyngeal erythema noted with PND) Respiratory Respiratory exam: Present normal lung sounds bilaterally; Absent respiratory distress or wheezes Cardiovascular Cardiovascular exam: Present regular rate, normal rhythm and normal heart sounds Abdominal Exam Abdominal exam: Present soft and normal bowel sounds; Absent distention or tenderness Neurological Exam Neurological exam: Present alert, oriented X3 and normal gait Medical Decision Making Jone Inquiry Pt receiving controlled substance: No Jone was queried for this patient: No Vital Signs: 09/26/23 10:05 Temperature 97.9 F Temperature Source Oral Pulse Rate [Left Brachial] 86 Respiratory Rate 19 Blood Pressure [Left Arm] 134/80 Blood Pressure Mean [Left Arm] 98 Blood Pressure Source [Left Arm] Automatic Cuff Blood Pressure Position [Left Arm] Sitting 02 Sat by Pulse Oximetry 97 Oxygen Delivery Method Room Air Orders (Tests/Meds): ORDERS Category Date Time Status Rapid PCR Covid and Flu A/B Stat Lab 09/26/23 10:10 Received
[2023-09-26 10:58] VITALS: BP 134/80; PULSE 86; RESP 19; TEMP 36.6; O2SAT 97
[2023-09-26 11:08] LABS: Coronavirus 19, PCR Detected (NotDetected)
== END 2023-09-26 11:01 | disposition home or self-care (01) ==
PROVIDERS: Emergency Provider Nurse Practitioner; PCP Nurse Practitioner Family
DX: U07.1 COVID-19 (principal); J01.90 Acute sinusitis, unspecified; R06.02 Shortness of breath; R51.9 Headache, unspecified; R05.9 Cough, unspecified
CPT/HCPCS: 87636; 99212; 99214; G0463

== ENCOUNTER 2023-10-06 15:49 | Outpatient (CLI) | payer BC, SELFPAY ==
--- NOTE | 2023-10-06 16:04 | US_ITS ---
FINAL REPORT CLINICAL HISTORY: ENLARGED THYROID FINDINGS: Sonographic images of the thyroid gland were obtained. The right thyroid lobe measures 49 mm. in length. The left thyroid lobe measures 61 mm. in length. The thyroid isthmus measures 7 mm. There is a heterogeneous echotexture to the thyroid. There is a solid, hypoechoic nodule on the right measuring 7 mm consistent with TI-RADS category 4. There is a dominant mass on the left which is mismarked on some of the images measuring 5.3 cm. This is cystic, solid, and hypoechoic. This is consistent with TI-RADS category 3. IMPRESSION: Thyroid nodules as detailed above. Recommend ultrasound-guided biopsy of the dominant nodule on the left. Reviewed, Interpreted and Dictated by Shahid Holt III, MD Transcribed by Cynthia Sigala Authenticated and [facility]
== END 2023-10-06 23:59 | disposition home or self-care (01) ==
LOC: RAD 15:49
PROVIDERS: PCP Nurse Practitioner Family; Visit Provider Nurse Practitioner Family
DX: E04.9 Nontoxic goiter, unspecified (principal)
CPT/HCPCS: 76536

== ENCOUNTER 2023-10-24 07:52 | Outpatient (CLI) | payer BC, SELFPAY ==
--- NOTE | 2023-10-24 07:52 | US_ITS ---
FINAL REPORT CLINICAL HISTORY: LT THYROID NODULE -- LT THRYOID FNA -- EDUARDO SUNG FINDINGS: Ultrasound guided thyroid biopsy. HISTORY: Thyroid mass. PROCEDURE: After informed consent was obtained and a time-out was performed, the patient was prepped and draped in usual sterile fashion over the anterior neck. Utilizing local anesthesia and sterile technique with a 25-gauge needle, access to the lesion was obtained. Four passes were made. The patient received no conscious sedation. The patient tolerated procedure well and left the department in good condition. IMPRESSION: Status post ultrasound guided biopsy of a thyroid mass without immediate complication. Films reviewed , interpreted and dictated by Dr. Larios. Transcribed by Eduardo Dong PA-C. Reviewed, Interpreted and Dictated by Tommy Larios MD Transcribed by PINEDA Hinojosa Authenticated and [facility]
== END 2023-10-24 23:59 | disposition home or self-care (01) ==
LOC: RAD 07:52
PROVIDERS: PCP Nurse Practitioner Family; Visit Provider Nurse Practitioner
DX: E04.1 Nontoxic single thyroid nodule (principal)
CPT/HCPCS: 10005

== ENCOUNTER 2023-11-13 18:08 | Emergency (ER) | payer SELFPAY ==
[2023-11-13 18:40] VITALS: BP 127/69; PULSE 88; RESP 20; TEMP 37.2; O2SAT 98; BMI 44.6
--- NOTE | 2023-11-13 18:41 | EXP.UTC ---
Discharge Plan Disposition Patient Disposition: Home, Self-Care Condition: Good Prescriptions Prescriptions: New azithromycin [Zithromax] 250 mg tablet 250 mg PO UD DOSE PK Qty: 6 0RF Rx Instructions: Take two (2) tablets today, then one (1) tablet days #2 thru #5 methylprednisolone 4 mg Tablets,Dose Pack 4 mg PO DIRECTED 6 Days Qty: 21 0RF Rx Instructions: Take 1 pack as directed for 6 days No Action norgestimate-ethinyl estradiol [Estarylla] 0.25-35 mg-mcg tablet 1 tab PO DAILY Referrals Follow up/Referrals: Candace Jhaveri APRN [Primary Care Provider] - See instructions Activity Restrictions/Add. Instructions Additional Instructions/Restrictions: Drink plenty of fluids. Take tylenol or ibuprofen for pain or fever. Take the medications as directed. Follow up with your regular doctor. GO TO THE ER FOR ANY WORSENING SYMPTOMS Throw your tooth brush away and get a new one. Clinical Impressions Clinical Impression: Strep throat Stand Alone Forms Stand Alone Forms: Work/School Release Instructions Patient Instructions: Strep Throat, DI for Strep Throat Print Language Print Language: Egyptian Discharge ED Provider: Thanh Crawford [facility] [place] HPI General Stated complaint: sore throat Time Seen by Provider: 11/13/23 18:41 Related Data Home Medications ?Medication ?Instructions ?Recorded ?Confirmed norgestimate 0.25 mg-ethinyl 1 tab PO DAILY control 01/23/22 11/13/23 estradiol 35 mcg tablet (Estarylla) Previous Rx's ?Medication ?Instructions ?Recorded azithromycin 250 mg tablet 250 mg PO UD DOSE PK #6 tabs 11/13/23 (Zithromax) methylprednisolone 4 mg tablets in 4 mg PO DIRECTED 6 days #21 tabs 11/13/23 a dose pack Allergies Allergy/AdvReac Type Severity Reaction Status Date / Time penicillin G [PENICILLIN G] Allergy Mild Verified 11/06/23 14:32 [facility] Disclaimer: The information contained in this section may have been updated after the patient was seen, as this information can be updated by other users. 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 Thyroid Nodule Anemia Depression Anxiety Surgical History History of tonsillectomy History of wisdom tooth extraction History of right knee surgery Social History Smoking Status: Never smoker alcohol intake: never substance use type: denies use current occupational status: other Travel in the last 8 weeks: None household members: significant other and children housing: house ROS Obtained: Yes All systems reviewed & no additional complaints except as documented Constitutional Constitutional: Reports chills and Reports fever(s) Eyes Eyes: Denies eye discharge ENT Ears, Nose, Mouth, and Throat: Reports as per HPI Cardiovascular Cardiovascular: Denies chest pain Respiratory Respiratory: Denies chest congestion and Reports cough Gastrointestinal Gastrointestingal: Reports nausea; Denies abdominal pain, constipation, cramping, diarrhea or vomiting Musculoskeletal Musculoskeletal: Denies arthralgias Integumentary/Breasts Skin/Breast: Denies rash Neurologic Neurologic: Denies paresthesias Physical Exam General General appearance: alert and in no apparent distress Head Head exam: atraumatic, normocephalic and normal inspection Eye Eye exam: Present normal appearance, PERRL and EOMI ENT ENT exam: Present mucous membranes moist and normal external ear exam Expanded ENT Exam TM/Canal exam: Bilateral TM: erythema and bulging Nose exam: Absent sinus tenderness Mouth exam: Present normal external inspection; Absent drooling Teeth exam: Present normal inspection Throat exam: Present tonsillar erythema, tonsillomegaly and tonsillar exudate Neck Neck exam: Present normal inspection, full ROM and trachea midline; Absent tenderness, meningismus or lymphadenopathy Chest Chest inspection: Present normal inspection and symmetric chest wall rise; Absent tenderness Respiratory Respiratory exam: Present normal lung sounds bilaterally; Absent respiratory distress, wheezes, stridor or accessory muscle use Cardiovascular Cardiovascular exam: Present regular rate and normal rhythm; Absent systolic murmur or diastolic murmur Abdominal Exam Abdominal exam: Present soft and normal bowel sounds; Absent distention, tenderness, guarding, rebound or rigidity Extremities Exam Extremities exam: Present normal inspection and normal capillary refill; Absent calf tenderness Back Exam Back exam: Present normal inspection and full ROM; Absent tenderness, CVA tenderness (R) or CVA tenderness (L) Neurological Exam Neurological exam: Present alert, oriented X3 and CN II-XII intact Psychiatric Psychiatric exam: Present normal affect and normal mood Skin Skin exam: Present warm, dry, intact and normal color Medical Decision Making Medical Records Medical records reviewed: No I reviewed the patient's medical records. Jone Inquiry Pt receiving controlled substance: No Lab Data Lab results reviewed: Yes I reviewed the patient's lab results.
[2023-11-13 18:52] LABS: UTC Strep Screen (Rapid) Positive (Negative)
[2023-11-13 19:46] VITALS: BP 127/69; PULSE 88; RESP 20; TEMP 37.2; O2SAT 98
== END 2023-11-13 19:49 | disposition home or self-care (01) ==
PROVIDERS: Emergency Provider Nurse Practitioner Family; PCP Nurse Practitioner Family
DX: J02.0 Streptococcal pharyngitis (principal); R07.0 Pain in throat
CPT/HCPCS: 87880; 99212; 99214; G0463

== ENCOUNTER 2024-01-05 13:52 | Outpatient (CLI) | payer BC, SELFPAY ==
--- NOTE | 2024-01-05 13:53 | US_ITS ---
FINAL REPORT CLINICAL HISTORY: 5.3 cm left dom nodule COMPARISON: None FINDINGS: Sonographic images of the thyroid gland were obtained. The right thyroid lobe measures 39 mm. in length. The left thyroid lobe measures 61 mm. in length. The thyroid isthmus measures 7 mm. The echogenicity is normal. There are multiple small nodules in the right which are visually not significantly changed. Dominant TR 3 mass left thyroid mostly solid isoechoic measuring 51 x 47 x 40 mm, was 53 mm, and visually stable. IMPRESSION: Stable TR 3 mass in the left lobe of the thyroid. Consider additional follow-up in 12 months per TI-RADS criteria. Reviewed, Interpreted and Dictated by Shahid Holt III, MD Transcribed by Adela Lujan Authenticated and . [facility]
== END 2024-01-05 23:59 | disposition home or self-care (01) ==
LOC: RAD 13:53
PROVIDERS: PCP Nurse Practitioner Family; Visit Provider Nurse Practitioner
DX: E04.1 Nontoxic single thyroid nodule (principal)
CPT/HCPCS: 76536

== ENCOUNTER 2024-02-09 12:30 | Outpatient (CLI) | payer BC, SELFPAY ==
[2024-02-09 13:14] VITALS: BMI 41.1
[2024-02-09 13:35] LABS: Basophils # 0.1 K/mm3 (0-0.2); Basophils % 0.7 % (0.1-2.0); Eosinophils # 0.2 K/mm3 (0.0-0.4); Eosinophils % 2.4 % (0.1-12.0); Hematocrit 35.4 % (37.0-47.0); Hemoglobin 12.4 g/dL (12.2-16.2); Lymphocytes # 2.9 K/mm3 (0.7-4.5); Lymphocytes % 38.1 % (10-50); Mean Corpuscular HGB Conc 35.1 g/dL (31.8-35.4); Mean Corpuscular Hemoglobin 27.5 pg (27.0-31.2); Mean Corpuscular Volume 78.3 fl (81-99); Monocytes # 0.3 K/mm3 (0.1-1.0); Monocytes % 3.9 % (1.7-9.3); Neutrophils # 4.2 K/mm3 (1.8-7.8); Platelet Count 263 K/mm3 (142-424); Red Blood Count 4.52 M/mm3 (4.20-5.40); Red Cell Distribution Width 15.2 % (11.5-17.5); White Blood Count 7.6 K/mm3 (4.8-10.8)
[2024-02-09 13:38] LABS: Urine Pregnancy, HCG Qual. Negative (Negative)
[2024-02-09 13:41] LABS: Chloride 108 mmol/L (98-107); Sodium 137 mmol/L (136-145)
[2024-02-09 13:42] LABS: Potassium 3.9 mmoL/L (3.5-5.1)
[2024-02-09 13:45] LABS: Anion Gap 6.9 mEq/L (5-15); Blood Urea Nitrogen 15 mg/dl (7-17); Calcium 8.9 mg/dl (8.4-10.2); Carbon Dioxide 26 mmol/L (22.0-30.0); Creatinine Clearance Estimated 206 mL/min (50-200); Estimated Glomerular Filt Rate 100 ml/min (>60); GFR (African American) 121 ML/MIN (>60); Glucose 86 mg/dl (74-100)
[2024-02-09 14:16] LABS: Thyroid Stimulating Hormone 1.31 uIU/mL (0.465-4.68)
== END 2024-02-09 23:59 | disposition home or self-care (01) ==
LOC: PREOP 12:31
PROVIDERS: PCP Nurse Practitioner Family; Visit Provider Student in an Organized Health Care Education/Training Program
DX: Z01.812 Encounter for preprocedural laboratory examination (principal); E04.1 Nontoxic single thyroid nodule
CPT/HCPCS: 36415; 80048; 81025; 84439; 84443; 85025

== ENCOUNTER 2024-02-14 07:59 | Day surgery (SDC) | payer BC, SELFPAY ==
[2024-02-14] VITALS (9 sets, daily range): BP systolic 123–148; BP diastolic 60–94; PULSE 73–93; RESP 15–20; TEMP 36.1–36.4; O2SAT 94–98; BMI 42.0
[2024-02-14] MEDS: LACTATED RINGERS 1000ML 1,000 ML 25 ML IV (08:16)
--- NOTE | 2024-02-14 08:25 | EXP.ANES.CKL ---
[facility] Disclaimer: The information contained in this section may have been updated after the patient was seen, as this information can be updated by other users. 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 Family history of malignant neoplasm of thyroid gland Thyroid Nodule Anemia Depression Anxiety Surgical History History of tonsillectomy History of wisdom tooth extraction History of right knee surgery Family History Other Family history of clotting disorder Social History Smoking Status: Never smoker alcohol intake: never substance use type: denies use current occupational status: employed and other Travel in the last 8 weeks: None household members: significant other and children housing: house Have you lived/traveled outside US in past 30 days?: No Contact w/someone who lives/traveled outside US past 30 days?: No Exposure to someone with infectious disease in past 14 days?: No Do you have a fever (greater than 100.4 F or 38 C)?: No Have you tested positive for COVID-19: No Exposed to someone with COVID-19 in past 14 days?: No Do you have a sore throat?: No Do you have a cough?: No Do you have any weakness?: No Do you have any diarrhea?: No Are you experiencing any unusual bleeding?: No Do you have any muscle aches/pain?: No Do you have any abdominal pain?: No Are you experiencing loss of taste or smell?: No [facility] Anesthesia Checklist Patient Identification Patient Identification: Arm Band and Verbal (Name & ) Structural Data Admitted From: Home Planned Operative Procedure/s: Left hemithyroidectomy Consent for Planned Operative Procedure(s) Verified: Yes Verified Documents: Surgical Consent and History and Physical NPO Status Verified Time NPO: 00:00 Additional verifications Anesthesia Reactions: No Airway Assessment Mallampati Score:: Class II C-Spine Mobility Assessed: Yes TMJ Mobility Assessed: Yes Dentition: Good Dentition Neurological Assessment Level of Consciousness: Awake Hx Seizures: No Numbness or tingling in extremities: No Anesthesia Plan Anesthesia Risk discussed: Yes Anesthesia Plan: Verified ASA Class: III Anesthesia Type: General
[2024-02-14] MEDS: CLINDAMYCIN PHOSPHATE/D5W 900 MG/50 ML PIGGYBACK 25 MG (09:00)
[2024-02-14] MEDS: LIDOCAINE 1% W/EPI 1:100,000 20ML VIAL 20 ML (09:02)
--- NOTE | 2024-02-14 11:17 | P.OP_ITS ---
Date of procedure: 02/14/24 Pre-op Diagnosis:: left thyroid nodule Post-op Diagnosis:: same Procedure performed:: left hemithyroidectomy Surgeon:: Ponce Jones MD Manager Of Sustainability(s):: RN assist APPOINTMENT SETTER:: Wade Gleason Anesthesia: GETA Estimated blood loss (mL): 20 Operative findings:: large left thyroid nodule, essentially ectopic from remainder of thyroid lobe, densely scarred to strap muscles Operative note:: The patient was brought to the OR, laid in the supine position, and general anesthesia with a Nims nerve monitoring endotracheal tube was induced.? Nerve monitor was set up and confirmed to be working appropriately.? Patient was prepped and draped in usual fashion.? Lidocaine with epinephrine 1-100,000 was injected below the incision site.? I dissected through the skin, subcutaneous tissues, and platysma.? The strap muscles were identified at the midline raphae.? The strap muscles were divided at the raphae.? I then began to dissect the strap muscles off of the left? side of the thyroid.?She had a large inferior nodule that was densely scarred to the strap muscles and required extensive dissection to free them off of it. I isolated the superior pedicle and was taken down with a harmonic.?? We then came inferiorly again freeing thyroid from the surrounding tissue.? I then began to roll the thyroid in a lateral to medial fashion out of the patient's neck.?In doing this is became apparent that the large nodule was essentially ectopic from the remainder of the left thyroid lobe. The recurrent laryngeal nerve was identified and preserved. I removed the lagre nodule, and then came back and freed the remainder of the left throid lobe from the next. I dissected through Arrington's ligament and dissected the residual lobe off the trachea. The thyroid was divided at the midline isthmus and then sent for permanent pathology.? Patient's neck was then thoroughly irrigated out.? Hemostasis was achieved with bipolar cautery.? The recurrent laryngeal ner ve stimulated both proximally and distally at the end of the case.?I identified was appeared to be an inferior parathyoid gland during the case. 15 Malaysian drain was fashioned in the patient's neck.? The incision was then closed in 2 layers.? They were then turned back over to anesthesia to be awoken and extubated. Condition: stable Disposition: PACU Complications:: none
--- NOTE | 2024-02-14 11:21 | P.PNANES_ITS ---
[facility] Anesthesia Record Part I Anesthesia Record I Intake, IV Amount: 1,000 Hydration: Adequate Estimated blood loss (mL): 25 Urine output (mL): 0 Blood Pressure: 136/82 SaO2: 94 Pulse Rate: 83 Airway Patency: Patent Respiratory Rate: 15 Temperature: 97.5 F Patient is:: Drowsy Stable to PACU at:: 11:18
[2024-02-14] MEDS: ONDANSETRON 4MG/2ML VIAL 4 MG IV (12:06)
--- NOTE | 2024-02-15 11:51 | EXP.ANES.II ---
[facility] Anesthesia Record Part II Anesthesia Record Part II Discharge Time: 11:48 Destination: Surgical Day Care (OP Surgery) PACU nurse assessment reviewed?: Yes Patient Condition:: Good Anesthesia Complications:: None Swallowing reflex intact?: Yes Airway Patency: Patent Cyanosis?: No Blood Pressure: 148/94 SaO2: 97 Respiratory Rate: 16 Pulse Rate: 74 Temperature: 97 F Mental Status: Alert & Oriented Pain level:: 3 Nausea and/or vomitting:: None Intake, IV Amount: 0 Hydration: Adequate
[2024-02-15 11:52] VITALS: BP 148/94; PULSE 74; RESP 16; TEMP 36.1; O2SAT 97
== END 2024-02-14 12:55 | disposition home or self-care (01) ==
PROVIDERS: PCP Nurse Practitioner Family; Visit Provider Student in an Organized Health Care Education/Training Program
PROC: (CPT 60220; principal; 2024-02-14 09:00)
DX: E04.1 Nontoxic single thyroid nodule (principal)
CPT/HCPCS: 60220; 96374; J0131; J0736; J1100; J1885; J2250; J2405; J3010; J7120

== ENCOUNTER 2024-03-15 16:07 | Outpatient (CLI) | payer BC, SELFPAY ==
[2024-03-15 17:46] LABS: Free T4 (Free Thyroxine) 1.03 ng/dl (0.78-2.19)
[2024-03-15 17:58] LABS: Thyroid Stimulating Hormone 3.03 uIU/mL (0.465-4.68)
== END 2024-03-15 23:59 | disposition home or self-care (01) ==
LOC: LAB 16:08
PROVIDERS: PCP Nurse Practitioner Family; Visit Provider Student in an Organized Health Care Education/Training Program
DX: E89.0 Postprocedural hypothyroidism (principal)
CPT/HCPCS: 36415; 84439; 84443

== ENCOUNTER 2024-03-24 11:09 | Emergency (ER) | payer BC, SELFPAY ==
[2024-03-24 12:17] VITALS: BP 120/78; PULSE 81; RESP 20; TEMP 36.9; O2SAT 95; BMI 46.3
--- NOTE | 2024-03-24 13:12 | EXP.UTC ---
Discharge Plan Disposition Patient Disposition: Home, Self-Care Condition: Good Prescriptions Prescriptions: New azithromycin 250 mg tablet See Rx Instructions .ROUTE .COMPLEX Qty: 6 0RF Rx Instructions: For 250 mg dose pack: take 500 mg today (day 1), then 250 mg for 4 days (days 2-5) methylprednisolone [Medrol (Cristian)] 4 mg tablets,dose pack See Rx Instructions .ROUTE .COMPLEX 6 Days Qty: 21 0RF Rx Instructions: 4 mg orally ;Medrol dose taper cristian jivjhdculcnwvrx-wcchujlsm-XZ [Bromfed DM] 2-30-10 mg/5 mL syrup 10 ml PO Q6H PRN (Reason: cough/sinus) Qty: 200 0RF albuterol sulfate 90 mcg/actuation HFA aerosol inhaler 2 puff inhalation Q6H PRN (Reason: shortness of breath or wheezing) Qty: 8.5 0RF No Action norgestimate-ethinyl estradiol [Estarylla] 0.25-35 mg-mcg tablet 1 tab PO DAILY Referrals Follow up/Referrals: Candace Jhaveri APRN [Primary Care Provider] - See instructions Activity Restrictions/Add. Instructions Additional Instructions/Restrictions: Take medication as prescribed. Increase fluids and rest. If symptoms persist or worsen, return to clinic/PCP. If you become short of air, return to the ER. Clinical Impressions Clinical Impression: Acute lower respiratory infection Instructions Patient Instructions: Acute Bronchitis, DI for Viral Upper Respiratory Infection -- Adult Print Language Print Language: Russian Discharge ED Provider: Caty Cartre [facility] [place] HPI General Stated complaint: cough, wheezing, congestion Mode of Arrival: Ambulatory Source of Information: Patient Time Seen by Provider: 03/24/24 13:12 Description of Symptoms (Recalled from Triage Doc. by RN): COUGH, WHEEZING, CONGESTION, SOB HEENT Symptoms (Recalled from RN notes): No Resp Symptoms (Recalled from RN notes): Yes Skin Symptoms (Recalled from RN notes): No MS Symptoms (Recalled from RN notes): No Functional Status (Recalled from RN notes): WNL History of Present Illness Provider Complaint: Pt states that for the past week she has had coughing with phlegm turning to a greyish green, sinus congestion, wheezing, and feeling short of air at times. She denies taking anything for her symptoms. Related Data Home Medications ?Medication ?Instructions ?Recorded ?Confirmed norgestimate 0.25 mg-ethinyl 1 tab PO DAILY control 01/23/22 03/24/24 estradiol 35 mcg tablet (Estarylla) Previous Rx's ?Medication ?Instructions ?Recorded albuterol sulfate 90 mcg/actuation 2 puff inhalation Q6H PRN 03/24/24 aerosol inhaler shortness of breath or wheezing #8.5 grams azithromycin 250 mg tablet See Rx Instructions PO .COMPLEX #6 03/24/24 tabs ymqyifzbdllrxex-pumdtttdpjbtjvo-XW 10 ml PO Q6H PRN cough/sinus #200 03/24/24 2 mg-30 mg-10 mg/5 mL oral syrup mL (Bromfed DM) methylprednisolone 4 mg tablets in See Rx Instructions .Route 03/24/24 a dose pack (Medrol (Cristian)) .COMPLEX 6 days #21 tabs Allergies Allergy/AdvReac Type Severity Reaction Status Date / Time penicillin G (PENICILLIN G) Allergy Mild Rash Verified 03/13/24 15:54 Worker's Comp Is this a Worker's Comp case?: No [facility] Disclaimer: The information contained in this section may have been updated after the patient was seen, as this information can be updated by other users. 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 (Updated 03/24/24 @ 13:22 by Caty Carter APRN) Benign neoplasm of thyroid Family history of malignant neoplasm of thyroid gland Thyroid Nodule Anemia Depression Anxiety Surgical History H/O partial thyroidectomy History of tonsillectomy History of wisdom tooth extraction History of right knee surgery Family History Other Family history of clotting disorder Social History Smoking Status: Never smoker alcohol intake: never substance use type: denies use current occupational status: employed and other Travel in the last 8 weeks: None household members: significant other and children housing: house Have you lived/traveled outside US in past 30 days?: No Contact w/someone who lives/traveled outside US past 30 days?: No Exposure to someone with infectious disease in past 14 days?: No Do you have a fever (greater than 100.4 F or 38 C)?: No Have you tested positive for COVID-19: No Exposed to someone with COVID-19 in past 14 days?: No Do you have a sore throat?: No Do you have a cough?: Yes Do you have any weakness?: No Do you have any diarrhea?: No Are you experiencing any unusual bleeding?: No Do you have any muscle aches/pain?: No Do you have any abdominal pain?: No Are you experiencing loss of taste or smell?: No ROS Obtained: Yes All systems reviewed & no additional complaints except as documented Constitutional Constitutional: Reports system reviewed and no additional complaints, except as documented Eyes Eyes: Reports system reviewed and no additional complaints, except as documented ENT Ears, Nose, Mouth, and Throat: Reports system reviewed and no additional complaints, except as documented, Reports nasal congestion and Reports nasal discharge Cardiovascular Cardiovascular: Reports system reviewed and no additional complaints, except as documented Respiratory Respiratory: Reports system reviewed and no additional complaints, except as documented, Reports as per HPI, Reports shortness of breath, Reports change in phlegm color, Reports cough and Reports wheezing Gastrointestinal Gastrointestingal: Reports system reviewed and no additional complaints, except as documented Genitourinary Female Genitourinary: Reports system reviewed and no additional complaints, except as documented Musculoskeletal Musculoskeletal: Reports system reviewed and no additional complaints, except as documented Integumentary/Breasts Skin/Breast: Reports system reviewed and no additional complaints, except as documented Neurologic Neurologic: Reports system reviewed and no additional complaints, except as documented Endocrine Endocrine: Reports system reviewed and no additional complaints, except as documented Hematologic/Lymphatic Henatologic/Lymphatic: Reports system reviewed and no additional complaints, except as documented Allergic/Immunologic Allergic/Immunologic: Reports system reviewed and no additional complaints, except as documented and Reports wheezing Physical Exam General General appearance: alert and in no apparent distress Head Head exam: atraumatic and normocephalic Eye Eye exam: Present normal appearance ENT ENT exam: Present mucous membranes moist Expanded ENT Exam External ear exam: Present normal external inspection Nasal speculum exam: Bilateral: other (clear drainage ) Mouth exam: Present normal external inspection Teeth exam: Present normal inspection Throat exam: Present normal inspection Neck Neck exam: Present normal inspection Chest Chest inspection: Present normal inspection and symmetric chest wall rise Respiratory Respiratory exam: Present wheezes and other Expanded Respiratory Exam Location: Left: wheezes, rales and rhonchi, Right: wheezes, rales and rhonchi, Upper: wheezes and rhonchi and Lower: wheezes and rales Cardiovascular Cardiovascular exam: Present regular rate and normal rhythm Abdominal Exam Abdominal exam: Present soft Back Exam Back exam: Present normal inspection Neurological Exam Neurological exam: Present alert and oriented X3 Psychiatric Psychiatric exam: Present normal affect and normal mood Skin Skin exam: Present warm, dry and intact Lymphatic Lymphatic Findings: no adenopathy Medical Decision Making Medical Records Screening: Per USPSTF and CDC recommendations, given the prevalence of disease in our region, it is our hospital?s policy to screen for HIV and viral Hepatitis for all patients aged 18 and over and those with ongoing risk factors. Jone Inquiry Pt receiving controlled substance: No Jone was queried for this patient: No Vital Signs: 03/24/24 12:17 Temperature 98.4 F Temperature Source Oral Pulse Rate [Left Radial] 81 Respiratory Rate 20 Blood Pressure [Left Arm] 120/78 Blood Pressure Mean [Left Arm] 92 02 Sat by Pulse Oximetry 95
[2024-03-24 13:25] VITALS: BP 120/78; PULSE 81; RESP 20; TEMP 36.9
== END 2024-03-24 13:26 | disposition home or self-care (01) ==
PROVIDERS: Emergency Provider Nurse Practitioner Family; PCP Nurse Practitioner Family
DX: J22 Unspecified acute lower respiratory infection (principal)
CPT/HCPCS: 99213; G0381

== ENCOUNTER 2024-07-19 16:02 | Outpatient (CLI) | payer BC, SELFPAY ==
--- NOTE | 2024-07-19 16:06 | US_ITS ---
PROCEDURE: US TRANSVAGINAL CLINICAL INDICATION: IRREGULAR MENSTRUAL BLEEDING COMPARISON: CT CT ABDOMEN PELVIS W CON from 04/16/2022 FINDINGS: Transvaginal sonographic images of the pelvis were obtained. UTERUS: 9.4cm x 4.5cmx 5.3cm initially retroflexed and axial then retroverted with a combined endometrial thickness of 11.8 mm. LEFT OVARY: 2.6 cmx1.4cmx2.3cm with a volume of 4.2ml. Has a dominant follicle with several small peripheral follicles. RIGHT OVARY: 3.6 cmx 2.1cmx2.1cm with a volume of 8.5ml. There are multiple small peripheral follicles giving the ovary polycystic appearance. Both ovaries are seen and appear polycystic. Doppler flow to both ovaries are seen. There is no fluid in the cul-de-sac. IMPRESSION: 1. Retroverted uterus normal in shape and size. The endometrium is 11.8 mm and likely premenstrual. 2. The right ovary is seen and appears polycystic. The left ovary has a dominant follicle and few small peripheral follicles. 3. No fluid in the cul-de-sac Dictated by: Bert Jernigan MD 07/20/2024 06:29 Bert Jernigan MD in OV 07/20/2024 06:29
== END 2024-07-19 23:59 | disposition home or self-care (01) ==
LOC: RAD 16:03
PROVIDERS: PCP Nurse Practitioner Family; Visit Provider Nurse Practitioner Family
DX: E28.2 Polycystic ovarian syndrome; N83.02 Follicular cyst of left ovary
CPT/HCPCS: 76830

== ENCOUNTER 2024-11-04 18:19 | Outpatient (CLI) | payer BC, SELFPAY ==
[2024-11-04 21:19] LABS: Coronavirus 19, PCR Not Detected (NotDetected); Influenza A, PCR Not Detected (NotDetected); Influenza B, PCR Not Detected (NotDetected)
--- OUTSIDE RECORDS SUMMARY | 2024-11-05 12:20 | XMS_ITS | Clinical Summary ---
Author Organization [facility] Address [address] [place] [address] Care Team Providers Care Viticulture Teacher Name Role Phone Provider, No Known Primary Care Provider Unavail able Allergies Active Allergy Reactions Criticality Noted Date Comments Penicillins Rash Low 07/30/2017 Medications norethindrone (MICRONOR) 0.35 MG tablet Take 1 tablet by mouth Daily. 90 tablet 3 11/15/2019 Active norgestimate-eth inyl estradiol (Sprintec 28) 0.25-35 MG-MCG per tablet Take 1 tablet by mouth Daily. 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 09/29/2019 Resolved Problems Problem Noted Date Diagnosed Date Resolved Date Normal labor 07/30/2017 08/01/2017 Family History 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 Relation Name Comments Ovarian cancer Other Family History Thyroid cancer Other Family History Relation Name Status Comments Other Family History Social History Tobacco Use Types Packs/Day Years Used Date Smoking Tobacco: Never Smokeless Tobacco: Never Alcohol Use Standard Drinks/Week Comments No 0 (1 standard drink = 0.6 oz pur e alcohol) [place] Depression Scale Answer Date Recorded [place] Depression Scale Total 1 11/15/2019 The thought of harming myself has occurred to me . Never 11/15/2019 Abuse Screen Answer Date Recorded Unsafe at Home or Work/School Not on file Feels Threatened by Someone? Not on file 10/2022 Does Anyone Keep You from Co ntacting Others or Doint Things Outside the Home? Not on file 12/05/2022 Physical Sign of Abuse Present Not on file 1 Housing Stability Answer Date Recorded Current Living Arrangements Not on file 10/2022 Potentially Unsafe Housing Conditions Not on cathie e 12/05/2022 Family and Community Support Answer Jacky e Recorded Help with Day-to-Day Activities Not on file 12/05/2022 Lonely or Isolated Not on file 12/05/2022 Employment Answer Date Recorded Do you want help finding or keeping work or a leann b? Not on file 12/05/2022 Disabilities Answer Date Recorded Concentrating, Remembering, or Making Decisions Difficulty Not on file 12/05/2022 Doing Errands Independently Difficulty Not on fi le 12/05/2022 Education Answer Date Recorded Help with school or training? 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 Not on file Not on file Last Filed Vital Signs Vital Sign Reading Time Taken Comments Blood Pressure 110/72 11/15/2019 9:54 AM EDT Pulse 78 10/02/2019 7:45 AM EDT Temperature 36.9 C (98.4 F) 11/15/2019 9:54 AM EDT Respiratory Rate 16 10/02/2019 7:45 AM EDT Oxygen Saturation - - Inhaled Oxygen Concentration - - Weight 101 kg (223 lb) 11/15/2019 9:54 AM EDT Height 162.6 cm (5' 4 ) 09/29/2019 9:46 PM EDT Body Mass Index 38.28 09/29/2019 9:46 PM EDT Plan of Treatment Health Maintenance Due Date Last Done Comments Annual Gynecologic Pelvic and Breast Exam 1995 ANNUAL PHYSICAL 09/27/2019 COVID-19 Vaccine ( season) 2024 INFLUENZA VACCINE 11/27/2024 TDAP/TD VACCINES (2 - Td or Tdap) 09/16/2029 09/17/2019 CHLAMYDIA SCREENING Discontinued 03/22/2019, 12/30/2016 HEPATITIS C SCREENING Completed 03/22/2019 Pneumococcal Vaccine 0-49 Aged Out No longer eligible based on patient's age to complete this topic Procedures Procedure Name Priority Date/Time Associated Diagnosis Comments CHLAMYDIA TRACHOMATIS, NEISSERIA GONORRHOEAE, PCR W/ CONFIRMATION Routine 03/22/2019 HEPATITIS C ANTIBODY Routine 03/22/2019 from Last 3 Months or Most Recently Relevant to Health Maintenance Results * Hepatitis C Antibody (03/22/2019) External Hepatitis C Ab Negative Blood Historical Provider MD LAB BLOOD ORDERABLES Jany l Result * Chlamydia trachomatis, Neisseria gonorrhoeae, PCR w/ confirmation - Swab, Vagina (03/22/2019) External Chlamydia Screen Negative Swab Specimen from vagina / Unknown [facility] Provider MICROBIOLOGY - GENERAL OR DERABLES Final Result from Last 3 Months or Most Recently Relevant to Health Maintenance Insurance ALONDRA SARGENT [id number] [address] [facility] Advance Directives * CPR (Attempt to Resuscitate) (Latest Code Status on File) Date Activated Date Inactivated Comments 09/30/2019 11:01 PM 10/02/2019 7:08 PM Question Answer Comments Code Status (Patient has no pulse and is not breathing): CPR (Attempt to Resuscitate) Medical Interventions (Patie nt has pulse or is breathing): Full * CPR (Attempt to Resuscitate) Date Activated Date Inactivated Comments 09/29/2019 11:09 PM 09/30/2019 11:01 PM Question Answer Comments Code Status (Patient has no pulse and is not breathing): CPR (Attempt to Resuscitate) Medical Interventions (Patie nt has pulse or is breathing): Full * Full Code Date Activated Date Inactivated Comments 07/30/2017 10:25 PM 08/01/2017 4:15 PM * Full Code Date Activated Date Inactivated Comments 07/30/2017 7:01 AM 07/30/2017 10:25 PM Care Teams Viticulture Teacher Relationship Specialty Start Date End Date Provider, No Known [facility] [place] [address] PCP - General 07/07/17
== END 2024-11-04 23:59 | disposition home or self-care (01) ==
LOC: LAB.DROPOF 11-05 12:17
PROVIDERS: PCP Nurse Practitioner; Visit Provider Nurse Practitioner
DX: J06.9 Acute upper respiratory infection, unspecified (principal)
CPT/HCPCS: 87631

== ENCOUNTER 2024-12-20 12:16 | Emergency (ER) | payer BC, SELFPAY ==
[2024-12-20 12:25] VITALS: BP 158/76; PULSE 103; RESP 18; TEMP 36.2; O2SAT 97; BMI 45.4
--- OUTSIDE RECORDS SUMMARY | 2024-12-20 12:35 | XMS_ITS | Clinical Summary ---
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 Not on file Not [...] and Breast Exam 1995 ANNUAL PHYSICAL 09/27/2019 INFLUENZA VACCINE 09/27/2024 TDAP/TD VACCINES (2 - Td or Tdap) [...] Hepatitis C Ab Negative Blood Historical Provider LAB BLOOD ORDERABLES Jany l Result * Chlamydia trachomatis, Neisseria gonorrhoeae, PCR w/ confirmation - Swab, Vagina (03/22/2019) External Chlamydia Screen Negative Swab Specimen from vagina / Unknown Historical Provider MICROBIOLOGY - GENERAL OR DERABLES Final Result from Last 3 Months or Most Recently Relevant to Health Maintenance [facility] Member Subscriber Plan / Payer (Ef fective 2018-Present) Name:Shane Amado Relation to Subscriber:Self Name:Shane Amado Payer ID:[id number] ([facility]) Type:Not on file Address: [address] [place] [id number] Advance Directives * CPR (Attempt to Resuscitate) [...] 7:01 AM 07/30/2017 10:25 PM Care Teams Apartment Maintenance Supervisor Relationship Specialty Start Date End Date Provider, No Known [facility] [place] [address] PCP - General 07/07/17
[2024-12-20 12:36] LABS: Coronavirus 19, PCR Not Detected (NotDetected); Influenza A, PCR Not Detected (NotDetected); Influenza B, PCR Not Detected (NotDetected)
--- NOTE | 2024-12-20 12:42 | XR_ITS ---
FINAL REPORT CLINICAL HISTORY: dyspnea, tightness, short of breath COMPARISON: 02/03/2021 FINDINGS: No acute pulmonary opacity is present. There is no evidence of effusion or pneumothorax. Mediastinum is unremarkable. Heart size is normal. IMPRESSION: No acute abnormality. Reviewed, Interpreted and Dictated by Alissa Ramos MD Transcribed by Cynthia Sigala Authenticated and [facility]
--- NOTE | 2024-12-20 12:44 | HMH.EDGENADL ---
Discharge Plan Disposition Patient Disposition: Home, Self-Care Prescriptions Prescriptions: No Action norgestimate-ethinyl estradiol [Estarylla] 0.25-35 mg-mcg tablet 1 tab PO DAILY Referrals Follow up/Referrals: Candace Jhaveri APRN [Primary Care Provider, Medical] - See instructions Activity Restrictions/Add. Instructions Additional Instructions/Restrictions: As discussed we have not completely ruled out a pulmonary embolism but it is unlikely given the fact that your symptoms have resolved. A CAT scan was ordered and offered however you wanted to be discharged prior to this being performed due to some family/social constraints. Please return to the emergency department with any persistent or worsening of your symptoms to have the study performed. Clinical Impressions Clinical Impression: Dyspnea, Chest pain, pleuritic Print Language Print Language: [place] Discharge ED Provider: Yovani Jeter General Adult HPI General Chief complaint: Shortness of Breath/Dyspnea Stated complaint: SOA, dizziness, hurts taking deep breath Time Seen by Provider: 12/20/24 12:38 Mode of Arrival: Ambulatory Source of Information: Patient Description of Symptoms (Recalled from ER Triage Doc. by RN): Pt presents for evaluation of shortness of breath x 2 days, dizziness with ambulation, and is now having a sharp pain when she takes a deep breath History of Present Illness HPI narrative: Patient is a 29-year-old female with a family history of a clotting disorder who presents today with pleuritic chest pain and shortness of breath over the last 2 days. States that when she takes a deep breath she has some discomfort in the middle aspect of her chest. No exertional symptoms no fevers or chills no hemoptysis no lower extremity swelling she has never had personally a blood clot. States that she has family members that she believes have a factor VIII deficiency . Patient does take a combined oral contraceptive pill. Related Data Home Medications ?Medication ?Instructions ?Recorded ?Confirmed norgestimate 0.25 mg-ethinyl 1 tab PO DAILY control 01/23/22 11/04/24 estradiol 0.035 mg tablet (Estarylla) Allergies Allergy/AdvReac Type Severity Reaction Status Date / Time penicillin G (PENICILLIN G) Allergy Mild Rash Verified 11/04/24 18:46 [facility] Disclaimer: The information contained in this section may have been updated after the patient was seen, as this information can be updated by other users. 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 (Updated 10/24/25 @ 12:43 by Yovani Jeter MD) Viral upper respiratory infection Benign neoplasm of thyroid Family history of malignant neoplasm of thyroid gland Thyroid Nodule Anemia Depression Anxiety Surgical History H/O partial thyroidectomy History of tonsillectomy History of wisdom tooth extraction History of right knee surgery Family History Other Family history of clotting disorder Social History Smoking Status: Current every day smoker alcohol intake: never substance use type: denies use current occupational status: employed and other Travel in the last 8 weeks?: None household members: significant other and children housing: house Have you lived/traveled outside [place] in past 30 days?: No Contact w/someone who lives/traveled outside [place] past 30 days?: No Exposure to someone with infectious disease in past 14 days?: No Do you have a fever (greater than 100.4 F or 38 C)?: No Have you tested positive for COVID-19?: No Exposed to someone with COVID-19 in past 14 days?: No Do you have a sore throat?: No Do you have a cough?: No Do you have any weakness?: No Do you have any diarrhea?: No Are you experiencing any unusual bleeding?: No Do you have any muscle aches/pain?: No Do you have any abdominal pain?: No Are you experiencing loss of taste or smell?: No Other 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 Have you received the Flu Vaccine for this season: No Have you received the Pneumonia Vaccine: No ROS Obtained: Yes All systems reviewed & no additional complaints except as documented Physical Exam General General appearance: alert and in no apparent distress Respiratory Respiratory exam: Present normal lung sounds bilaterally; Absent respiratory distress Cardiovascular Cardiovascular exam: Present regular rate and normal rhythm Neurological Exam Neurological exam: Present alert and oriented X3 Medical Decision Making Medical Records Screening: Per USPSTF and CDC recommendations, given the prevalence of disease in our region, it is our hospital?s policy to screen for HIV and viral Hepatitis for all patients aged 18 and over and those with ongoing risk factors. Jone Inquiry Pt receiving controlled substance: No Vital Signs: 12/20/24 12:25 12/20/24 14:30 Temperature 97.2 F L Temperature Source Temporal Artery Scan Pulse Rate 77 Pulse Rate [Right] 103 H Respiratory Rate 18 Blood Pressure 106/62 L Blood Pressure [Right Arm] 158/76 H Blood Pressure Mean [Right Arm] 103 Blood Pressure Source [Right Arm] Automatic Cuff Blood Pressure Position [Right Arm] Sitting 02 Sat by Pulse Oximetry 97 99 Oxygen Delivery Method Room Air Room Air Lab Data Lab results reviewed: Yes I reviewed the patient's lab results. Lab Results 12/20/24 12:30: SARS-CoV-2 (PCR) Not detected, Influenza A Untype (PCR) Not detected, Influenza Type B (PCR) Not detected 12/20/24 13:05: D-Dimer 0.83 H, Sodium 132 L, Potassium 4.4, Chloride 102, Carbon Dioxide 25, Anion Gap 9.4, BUN 15, Creatinine 0.60, Estimated Creat Clear 119, Estimated GFR 118, Est GFR ( Amer) 143, Glucose 88, Calcium 8.7, Total Bilirubin 0.7, AST 44 H, ALT 23, Alkaline Phosphatase 81, Troponin I < 0.01, Total Protein 6.9, Albumin 3.8, Globulin 3.1, Albumin/Globulin Ratio 1.2, Serum HCG, Qual Negative 12/20/24 13:23: WBC 10.8, RBC 4.49, Hgb 11.9 L, Hct 35.8 L, MCV 79.7 L, MCH 26.5 L, MCHC 33.2, RDW 14.5, Plt Count 249, MPV 9.0, Neut % (Auto) 77.7, Lymph % (Auto) 16.4, [place] % (Auto) 3.7, Eos % (Auto) 1.6, Baso % (Auto) 0.3, Neut # (Auto) 8.4 H, Lymph # (Auto) 1.8, [place] # (Auto) 0.4, Eos # (Auto) 0.2, Baso # (Auto) 0.0 12/20/24 13:23 12/20/24 13:05 Orders (Tests/Meds): ED MEDICATIONS Discontinued Medications Generic Name Dose Route Start Last Admin Trade Name Freq PRN Reason Stop Dose Admin Lactated Ringer's 1,000 mls @ 999 mls/hr 12/20/24 12:45 12/20/24 13:07 Lactated Ringer's 1000 Ml Bag IV 12/20/24 13:45 999 mls/hr .Q1H1M TU Administration Ketorolac Tromethamine 15 mg 12/20/24 12:41 12/20/24 13:08 Ketorolac 30mg/Ml Vial IV 12/20/24 12:42 15 mg ONCE ONE Administration ORDERS Category Date Time Status CT angio chest PE protocol Stat Cat Scan 12/20/24 13:56 Ordered CXR --portable [XR chest portable] Stat Exams 12/20/24 12:42 Completed CBC w/Auto Diff [Complete Blood Count Auto Diff] Stat Lab 12/20/24 13:23 Completed CMP [Comprehensive Metabolic Panel] Stat Lab 12/20/24 13:05 Completed D-Dimer Stat Lab 12/20/24 13:05 Completed HCG Qualitative, Serum Stat Lab 12/20/24 13:05 Completed Rapid PCR Covid and Flu A/B Stat Lab 12/20/24 12:30 Completed Trop I [Troponin I] Stat Lab 12/20/24 13:05 Completed Troponin I Q3H Lab 12/20/24 15:45 Ordered Troponin I Q3H Lab 12/20/24 18:45 Ordered ECG Data Tracing #1: I reviewed this ECG and interpreted as documented below: Ventricular rate of 107 sinus tachycardia no acute ischemic changes noted no significant conduction abnormalities normal axis Medical Decision Narrative: 29-year-old with above history and physical presents today with mild tachycardia on her EKG but not on my exam who presents with pleuritic chest pain and dyspnea. Lung auscultation is completely normal oxygen saturations normal respiratory effort is normal. Differential includes pulmonary embolism, pleurisy, obesity hypoventilation, etc. Will get a chest x-ray D-dimer basic labs and reassess. EKG is otherwise unremarkable. Reassessment 253 patient feeling significantly better after Toradol suggesting this is most likely musculoskeletal in nature. However her D-dimer was greater than 0.5 and I read stratified her to the higher risk category using years criteria and therefore was going to order a CT PE however the patient had some social constraints and had to go pick her children up from school and would like to be discharged. She understands that there is some diagnostic uncertainty and risk with this decision. She understood the risks and benefits of the study and understands that a pulmonary embolism has significant mobility and mortality associated with it. However given the fact that she is much better with Toradol and that her D-dimer was not greater than 1 it still low likelihood overall and this was explained to her. I have advised that she return with any persistent or worsening of her symptoms which she agrees to. Patient discharged in stable condition. Critical Care Critical Care Time Critical Care Time: No
[2024-12-20 13:00] VITALS: O2SAT 97
[2024-12-20] MEDS: LACTATED RINGERS 1000ML 1,000 ML 999 ML IV (13:07)
[2024-12-20] MEDS: KETOROLAC 30MG/ML VIAL 15 MG IV (13:08)
[2024-12-20 13:27] LABS: Albumin Level 3.8 g/dl (3.5-5.0); Chloride 102 mmol/L (98-107); Potassium 4.4 mmoL/L (3.5-5.1); Sodium 132 mmol/L (136-145)
[2024-12-20 13:29] LABS: Alanine Aminotransferase 23 U/L (12-78); Anion Gap 9.4 mEq/L (5-15); Aspartate Amino Transferase 44 U/L (14-36); Blood Urea Nitrogen 15 mg/dl (7-17); Carbon Dioxide 25 mmol/L (22.0-30.0); Creatinine Clearance Estimated 119 mL/min (50-200); Creatinine,Serum 0.60 mg/dl (0.52-1.04); Estimated Glomerular Filt Rate 118 ml/min (>60); GFR (African American) 143 ML/MIN (>60)
[2024-12-20 13:30] LABS: Albumin/Globulin Ratio 1.2 (1.1-1.8); Alkaline Phosphatase 81 U/L (38-126); Bilirubin,Total 0.7 mg/dl (0.2-1.3); Calcium 8.7 mg/dl (8.4-10.2); Globulin 3.1 g/dL (1.3-3.2); Glucose 88 mg/dl (74-100); Total Protein,Serum 6.9 g/dl (6.3-8.2)
[2024-12-20 13:31] LABS: Hematocrit 35.8 % (37.0-47.0); Hemoglobin 11.9 g/dL (12.2-16.2); Immature Granulocytes % 0.3 %; Mean Corpuscular HGB Conc 33.2 g/dL (31.8-35.4); Mean Corpuscular Hemoglobin 26.5 pg (27.0-31.2); Mean Corpuscular Volume 79.7 fl (81-99); Nucleated Red Blood Cells % 0 %; Platelet Count 249 K/mm3 (142-424); Red Blood Count 4.49 M/mm3 (4.20-5.40); Red Cell Distribution Width-SD 41.5 fL; White Blood Count 10.8 K/mm3 (4.8-10.8)
[2024-12-20 13:35] LABS: D-Dimer 0.83 ug/mL (0.0-0.5)
[2024-12-20 13:47] LABS: Troponin I < 0.01 ng/ml (0.00-0.034)
[2024-12-20 14:30] VITALS: BP 106/62; PULSE 77; O2SAT 99
[2024-12-20 14:45] LABS: HCG Qualitative, Serum Negative (Negative)
--- NOTE | 2024-12-20 14:49 | PC.NURSE ---
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 pt stated she does feel better at this time. this nurse informed her that should would have to be discharged and check back in if she wanted the scan.
[2024-12-20 15:11] VITALS: BP 118/56; PULSE 91; RESP 16; TEMP 36.8; O2SAT 97
== END 2024-12-20 15:13 | disposition home or self-care (01) ==
PROVIDERS: Emergency Provider Student in an Organized Health Care Education/Training Program; PCP Nurse Practitioner Family
DX: R07.1 Chest pain on breathing (principal); R06.02 Shortness of breath; R00.0 Tachycardia, unspecified; E87.1 Hypo-osmolality and hyponatremia; F17.210 Nicotine dependence, cigarettes, uncomplicated
CPT/HCPCS: 36415; 71045; 80053; 84484; 84703; 85025; 85378; 87636; 96361; 96374; 99284; 99285; J1885; J7120

== ENCOUNTER 2025-02-06 07:48 | Outpatient (CLI) | payer BC, SELFPAY ==
--- NOTE | 2025-02-06 08:00 | US_ITS ---
FINAL REPORT TECHNIQUE: Limited sonographic images of the thyroid were obtained. CLINICAL HISTORY: monitor- 1 year U/S COMPARISON: 01/05/2024 FINDINGS: The left lobe is surgically absent. The right lobe of the thyroid measures 4.8 x 1.3 x 1.5 cm. Redemonstrated are multiple right thyroid nodules. Nodules are hypoechoic, ovoid, and solid. Largest nodule measures 1.2 cm in greatest dimension. The largest nodule on the right appears larger than previous exam. IMPRESSION: Interval left thyroidectomy. Multiple right thyroid nodules. The largest nodule on the right has increased in size since the prior exam. Recommend follow-up in 1 year based on TI-RADS criteria. Reviewed, Interpreted and Dictated by Tommy Larios MD Transcribed by Cynthia Sigala Authenticated and [facility]
== END 2025-02-06 23:59 | disposition home or self-care (01) ==
LOC: RAD 07:49
PROVIDERS: PCP Nurse Practitioner Family; Visit Provider Student in an Organized Health Care Education/Training Program
DX: E04.2 Nontoxic multinodular goiter (principal); E89.0 Postprocedural hypothyroidism; D34 Benign neoplasm of thyroid gland
CPT/HCPCS: 76536